=== PATIENT | male | born 1950 | race Caucasian/White ===

== ENCOUNTER 2017-11-27 10:15 | Inpatient (IN) | payer MEDICARE, BC ==
--- NOTE | 2017-11-26 11:49 | HP ---
HISTORY OF PRESENT ILLNESS: A 67-year-old male with COPD on home oxygen and CPAP at night, followed by Dr. Shetty, Pulmonary Medicine at [facility]. The patient had a screening colonoscopy perform ed by Dr. Rodrigues in [place] on 11/08/2017 revealing a 4 cm cancer felt to be in the proximal transver se colon. Biopsy revealing moderately differentiated adenocarcinoma invasive. He had right colon tu bular adenomas and hyperplastic polyps, otherwise. The patient had a CEA level of 10.[address] sca n of abdomen and pelvis performed with contrast in [place] revealed hypodensities in the liver, too small to characterize, felt to probably be cyst. He had thickening of wall in the right colon repre senting the known colon mass and diverticulosis, otherwise no other significant findings. CEA level on 11/08/2017 was 10.88. The patient presents now for discussion regarding treatment of his right co asif cancer. The patient is asymptomatic from a cardiac standpoint. He did see Dr. Ermias Bernal five years ago and h johann a nuclear cardiac stress test that was normal. She dismissed him from her care. ALLERGIES: None. SOCIAL HISTORY: Tobacco cessation in 2009. Although smoked a cigarette or two until two years ago estee mcpherson he completely stopped. Alcohol rarely. Note, the patient lives in [place]. He is . 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 MEDICATIONS: Multivitamins daily, bilberry plus lutein, calcium 600 mg a day, zinc 50 mg a day, tom min D3, vitamin C, Daliresp 500 mcg tablet daily, Synthroid daily, Advair two times a day, albuterol inhaler 4-6 times a day, albuterol sulfate 6 times a day, fluticasone proprionate nasal spray as need ed, Combivent inhaler as needed, ProAir hand held nebulizer as needed, Klor-Con 20 mEq a day, furosem viet 80 mg daily, calcium, vitamin D daily. PAST SURGICAL HISTORY: Thyroglossal duct cyst removed, right total knee replacement, prostatectomy f or prostate cancer. PSA has been normal. PAST MEDICAL HISTORY: COPD, hypothyroidism secondary to Graves disease. For his COPD the patient us es home oxygen, nighttime CPAP, takes steroids and antibiotics as indicated, but currently is not on them. FAMILY HISTORY: Noncontributory. REVIEW OF SYSTEMS: Otherwise, noncontributory. PHYSICAL EXAMINATION: VITAL SIGNS: 220 pounds, 5 feet 6 inches, 140/83, 104, 97.5 degrees. LUNGS: Clear, but occasional slight expiratory wheeze, more on the right. CARDIAC: Regular rate and rhythm without murmur or gallop. ABDOMEN: Obese, soft, nontender. EXTREMITIES: No ankle edema and no changes of chronic venous stasis. No lymphadenopathy in neck, ax illa or groin. NEUROLOGIC: Cranial nerves intact, neurologically intact. No focal deficit. ASSESSMENT AND PLAN: 1. 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 Possibilities of po stoperative ventilation discussed. Encouraged him to take his nebulizers, breathing treatments, and medications the night before and morning of his surgery. He will have a DuoNeb preoperatively. We w ill plan this under general anesthesia and tap block. Possibilities of being on the ventilator posto peratively discussed, but goal would be to have him extubated postoperatively and observe him in the hospital as necessary, 2-4 days postop. Risk of infection, bleeding, reoperation, anastomotic leakag e discussed. The patient will try to see Dr. Shetty, his Pulmonary Medicine doctor prior to the surge ry. He is followed by JANIS Sanchez in [place] and under Dr. Samano. He was referred by Dr. Rodrigues. 2. Chronic obstructive pulmonary disease. 3. History of tobacco abuse cessation two years ago, markedly cut down to one or two cigarettes a da y since [id number]. 4. History of prostate cancer. No evidence of disease. PSA is normal.
[2017-11-27 10:52] VITALS: BMI 35.0
--- NOTE | 2017-11-27 12:35 | RAD ---
RADIOGRAPH CHEST 2 VIEWS: HISTORY: 67-year-old male for pre-operative clearance. FINDINGS: The thoracic aorta is tortuous and ectatic. There is no evidence of air space density, pneumothorax, or pulmonary edema. There is no cardiomegaly or pleural effusion. IMPRESSION: 1) No acute cardiopulmonary findings. 2) Ectasia of thoracic aorta. nikky POS: [place]
[2017-11-27 12:47] LABS: Hemoglobin A1c 5.5 % (4.0-6.0)
[2017-11-27 12:58] LABS: ALT (SGPT) 27 U/L (8-55); AST (SGOT) 25 U/L (5-34); Albumin 4.3 g/dL (3.4-4.8); Alkaline Phosphatase 80 U/L (40-150); Anion Gap 8 mmol/L (10-20); BUN (Urea Nitrogen) 8 mg/dL (8.4-25.7); Bilirubin, Total 0.6 mg/dL (0.2-1.2); Calc. Creatinine Clearance 117 mL/min (70-130); Calcium 9.4 mg/dL (7.8-10.44); Carbon Dioxide 34 mmol/L (23-31); Chloride 102 mmol/L (98-107); Estimated GFR-MDRD Greater than 90; Globulin 2.7 g/dL (2.4-3.5); Glucose 92 mg/dL (80-115); Potassium 4.4 mmol/L (3.5-5.1); Sodium 140 mmol/L (136-145)
[2017-11-27 13:11] LABS: #Basophils 0.1 thou/uL (0.0-0.2); #Eosinphils 0.3 thou/uL (0.0-0.7); #Lymphocytes 1.7 thou/uL (1.20-3.40); #Monocytes 0.7 thou/uL (0.11-0.59); #Neutrophils 7.6 thou/uL (1.40-6.50); %Basophils 0.7 % (0.0-1.0); %Lymphocytes 16.2 % (21.0-51.0); %Neutrophils 73.2 % (42.0-75.0); Mean Corpuscular HGB CONC 32.2 g/dL (32.0-36.0); Mean Corpuscular Hemoglobin 29.7 pg (27.0-31.0); Mean Corpuscular Volume 92.1 fL (78.0-98.0); Mean Platelet Volume 6.5 fL (7.4-10.4); Platelet Count 343 thou/uL (130-400); Red Blood Cell (RBC) Count 5.06 mill/uL (4.70-6.10); White Blood Cell (WBC) Count 10.4 thou/uL (4.8-10.8)
[2017-11-30] MEDS ORDERED: Ketorolac Tromethamine 30 MG/ML VIAL ONE (06:44)
[2017-11-30] MEDS ORDERED: Dexamethasone 4 mg/ml Vial ONE (06:45)
[2017-11-30] MEDS ORDERED: Meropenem 2 GM in Admixture Fee 1 EACH IVPB SCH (06:45)
[2017-11-30] MEDS ORDERED: Midazolam HCl 2 mg/2 ml Vial ONE (06:45)
[2017-11-30] MEDS ORDERED: Fentanyl 100 MCG/2 ML VIAL ONE (06:45)
[2017-11-30] MEDS ORDERED: Hydrocortisone Sod Succ/PF 100 mg/2 ml Vial ONE (07:28)
[2017-11-30] MEDS ORDERED: Gabapentin 300 MG CAP ONE (08:00)
[2017-11-30] MEDS ORDERED: CeleCOXIB 100 MG CAP ONE (08:00)
[2017-11-30] MEDS ORDERED: Fentanyl 250 MCG/5 ML VIAL ONE (09:26)
[2017-11-30] MEDS ORDERED: Ketamine 50 MG/ML VIAL ONE (09:26)
[2017-11-30] MEDS ORDERED: cefOXitin 2 GM VIAL ONE (11:46)
[2017-11-30] MEDS ORDERED: Acetaminophen 1,000 MG in Premix Bag 1 BAG IVPB SCH (12:00)
[2017-11-30] MEDS ORDERED: Morphine 4 MG/ML VIAL SLOW IVP PRN (12:21)
[2017-11-30] MEDS ORDERED: hydrALAZINE 20 MG/ML VIAL SLOW IVP PRN (12:21)
[2017-11-30] MEDS ORDERED: Ondansetron HCl/PF 4 MG/2 ML Vial IVP PRN (12:21)
[2017-11-30] MEDS ORDERED: Fluticasone Propionate Nasal Spray 16 gm Bottle NASAL PRN (12:35)
[2017-11-30] MEDS ORDERED: ALBUTEROL SULFATE PO PRN (12:35)
[2017-11-30] MEDS ORDERED: guaiFENesin ER 600 MG TAB PO PRN (12:35)
[2017-11-30] MEDS ORDERED: IPRATROPIUM PO PRN (12:35)
[2017-11-30] MEDS ORDERED: Ipratropium Bromide 2.5 ml Neb NEB PRN (12:35)
--- NOTE | 2017-11-30 12:56 | OP ---
DATE OF PROCEDURE: 11/30/2017 PREOPERATIVE DIAGNOSIS: Right colon, hepatic flexure colon cancer, located proximal transverse colon , chronic obstructive pulmonary disease, obesity. POSTOPERATIVE DIAGNOSIS: Right colon, hepatic flexure colon cancer, located proximal transverse colo n, chronic obstructive pulmonary disease, obesity. PROCEDURE: Laparoscopic right colon resection with ileocolic primary staple anastomosis. SURGEON: Davy Jenkins M.D. ANESTHESIA: General. DOCUMENTATION NURSE: Tap block by Anesthesia. Ultrasound facilitated. ESTIMATED BLOOD LOSS: 57 mL. BLOOD TRANSFUSED: None. FINDINGS: Obesity, grossly normal-appearing liver and peritoneal cavity; palpable tumor mass in the proximal transverse colon, resected, tumor mass was mobile and no indication of extracolonic disease. PROCEDURE IN DETAIL: The patient was taken to the operating room where under general anesthesia and tap block, his abdomen was prepared with ChloraPrep, draped in routine fashion. Barclay catheter place d at the beginning of the procedure and removed at the end. Infraumbilical incision made and pneumop eritoneum to 15 mmHg obtained with the Veress needle, replacing it with a 5-port laparoscope inserted . Left upper quadrant incision made and a 5-port placed. Right lower quadrant incision made and a 5 -port placed. Right upper quadrant incision made and a 5-port placed. Dissection carried out freein g the cecum, terminal ileum from the pelvis. The tattooed area in the proximal transverse colon note d indicating the tumor mass. This also covered the adjacent mesentery. The gastrocolic ligament cass en down from the hepatic flexure area and transverse colon to the left of the falciform ligament. Li gaSure was used. The colon mobilized. The falciform ligament was taken down to some degree to facil itate reflection of the omentum cephalad to facilitate this dissection. There were some omental adhe sions to anterior abdominal wall near the falciform ligament in the midline, taken down with LigaSure to enable this. At this point, the terminal ileum was identified and mesentery scored with the cold scissors and adjacent mesentery at the root of the right colon scored up just distal to the tattooed area of the proximal transverse colon. This was to the patient's right of the middle colic vessels. Duodenum identified as the dissection was carried out. The ileocolic vascular pedicle identified, dissected free, LigaSure facilitated this, and this was divided with white load MADY stapler, exchangi ng the 5 mm port left lower quadrant for the 12 port to enable this. The mesentery then freed up to the terminal ileum using the LigaSure. The mesoappendix had been taken down with the LigaSure. Appe ndix identified and resected with the specimen. The right colon was then mobilized along the lateral edge of the hepatic flexure using the LigaSure mobilizing the right colon and transverse colon. Onc e this was accomplished and the colon completely be mobilized, and good hemostasis noted and appropri ate incision was made in the upper midline and the wound protector placed around the fascia and the c olon delivered into the wound. The staple anastomosis created with a MADY blue load 70 stapler. Once this was completed, the colon and ileum resected with 2 fires of the blue load stapler, closing the common enterotomy-colotomy site. Specimen resected and submitted to pathology. After palpating the tumor in the proximal transverse colon, there was no distortion of the serosa. No evidence of extrac olonic disease and the mesentery was very fatty and no obvious enlarged lymph nodes are noted. Good hemostasis noted. The anastomosis palpated. Sponge, instrument, and needle counts were correct, jose ves were changed, and midline fascia closed with continuous suture of #1 PDS. Skin and subcutaneous tissues irrigated. Wounds irrigated. The 12-mm port site had been closed, the fascia with 0 Vicryl suture. All skin incisions approximated with the subdermal 4-0 Monocryl and continuous suture of sub dermal 4-0 Monocryl, and DermaGlue applied. Patient tolerated the procedure well.
[2017-11-30] MEDS ORDERED: Ipratropium Bromide 2.5 ml Neb NEB SCH (13:00)
[2017-11-30] MEDS ORDERED: Bupivacaine HCl 0.5%/Epinephrine 1:200,000/PF 30 ml Vial ONE (13:45)
[2017-11-30] MEDS ORDERED: PROPOFOL 200 MG/20 ML VIAL ONE (14:23)
[2017-11-30] MEDS ORDERED: Glycopyrrolate 0.2 MG/ML 5 ML SYRINGE ONE (14:23)
[2017-11-30] MEDS ORDERED: Lidocaine 1% PF 5 ML VIAL ONE (14:23)
[2017-11-30] MEDS ORDERED: Ondansetron HCl/PF 4 MG/2 ML Vial ONE (14:23)
[2017-11-30] MEDS: Lactated Ringer's 1,000 ML IV SCH ×2 (14:36→23:40)
[2017-11-30] MEDS: Acetaminophen 1,000 MG in Premix Bag 1 BAG IVPB SCH ×2 (14:36→20:17)
--- NOTE | 2017-11-30 17:08 | CON ---
DATE OF CONSULTATION: 11/30/2017 HISTORY OF PRESENT ILLNESS: Mr. Estrella is a very pleasant 67-year-old male with COPD and sleep apnea. He was found to have transverse colon cancer. It was recommended that this be resected. He has undergone resection and I was consulted for assistance postoperatively. PAST MEDICAL HISTORY: 1. Remarkable for tobacco use until 2009. 2. History of COPD on chronic oxygen at home. It is unknown to me what his room air sat was at rest versus whether or not this was prescribed for ambulatory hypoxemia. SOCIAL HISTORY: He is . He has a large family that is all in the room with him, retired [employer]. MEDICATIONS: Prior to admission, he was on Spiriva once a day, nebulizer 4-6 times a day and Advair twice a day. Some potassium, Lasix, calcium and vitamin D. PAST SURGICAL HISTORY: Remarkable for knee replacement, prostatectomy and thyroglossal duct cyst. PAST MEDICAL HISTORY: Remarkable for Graves disease in the past. FAMILY HISTORY: Negative for lung disease in early age. REVIEW OF SYSTEMS: Ten point system review completed, otherwise negative. He denies pain surprisingly when I saw him after surgery. PHYSICAL EXAMINATION: GENERAL: Mr. Estrella is a very pleasant 67-year-old male with COPD and sleep apnea. VITAL SIGNS: He is afebrile, heart rate is 97, respiratory rate 18, oximetry is 93 on 3 liters, blood pressure 147/78. HEENT: Pupils are equal. NECK: Supple. LUNGS: Clear and distant. HEART: Regular rhythm, no S3, no murmurs heard. ABDOMEN: Soft and distended postoperatively, did not palpate his abdomen deeply because of his surgery. EXTREMITIES: Without clubbing, cyanosis, or edema. LABORATORY DATA: White count preop is 10.4, hemoglobin 15, platelets 343. Electrolytes were remarkable for bicarbonate of 34, which I suspect is secondary to chronic CO2 retention. IMPRESSION: Chronic obstructive pulmonary disease, clinically stable. He says he is felt the best he has felt in a while for the last 2 days because humidity dropped. We will continue with nebulizer treatments every 4 hours while awake. No recent added Spiriva, given that he is getting ipratropium every 4 hours and the Advair really will add much acutely. I will be happy to follow with the other physicians caring for him. Hopefully, a stable postop course. This is a 50-minute consult with greater than 50% of the time was spent on unit coordinating care. STEPHANIE
[2017-11-30] MEDS: Ketorolac Tromethamine 30 MG/ML VIAL IVP SCH (17:34)
[2017-11-30] MEDS: Mometasone/Formoterol 120 PUFF INHALER INH SCH (18:20)
[2017-11-30] MEDS ORDERED: traMADol HCl 50 MG TAB PO PRN ×2 (20:00)
[2017-11-30] MEDS: Enoxaparin Sodium 40 MG/0.4 ML SYRINGE SC SCH (20:17)
[2017-11-30] MEDS: Famotidine 20 MG TAB PO SCH (20:18)
[2017-11-30] MEDS: Famotidine/PF 20 mg/2ml Vial SLOW IVP SCH (23:22)
[2017-12-01] MEDS: Ketorolac Tromethamine 30 MG/ML VIAL IVP SCH ×5 (00:21→23:19)
[2017-12-01] MEDS: Acetaminophen 1,000 MG in Premix Bag 1 BAG IVPB SCH ×2 (03:54→08:15)
[2017-12-01 05:35] LABS: #Lymphocytes 0.9 thou/uL (1.20-3.40); #Monocytes 0.9 thou/uL (0.11-0.59); #Neutrophils 12.4 thou/uL (1.40-6.50); %Basophils 0.1 % (0.0-1.0); %Eosinophils 0.1 % (0.0-10.0); %Lymphocytes 6.6 % (21.0-51.0); %Monocytes 6.1 % (0.0-10.0); %Neutrophils 87.2 % (42.0-75.0); Mean Corpuscular Hemoglobin 30.2 pg (27.0-31.0); Mean Corpuscular Volume 91.3 fL (78.0-98.0); Mean Platelet Volume 6.4 fL (7.4-10.4); Platelet Count 296 thou/uL (130-400); RBC Distribution Width 12.7 % (11.5-14.5); Red Blood Cell (RBC) Count 4.32 mill/uL (4.70-6.10); White Blood Cell (WBC) Count 14.3 thou/uL (4.8-10.8)
[2017-12-01] MEDS: Levothyroxine 150 MCG TAB PO SCH (05:36)
[2017-12-01] MEDS: ROFLUMILAST PO SCH (05:41)
[2017-12-01 05:56] LABS: Anion Gap 14 mmol/L (10-20); BUN (Urea Nitrogen) 13 mg/dL (8.4-25.7); Calc. Creatinine Clearance 118 mL/min (70-130); Calcium 8.5 mg/dL (7.8-10.44); Carbon Dioxide 25 mmol/L (23-31); Chloride 102 mmol/L (98-107); Estimated GFR-MDRD Greater than 90; Glucose 117 mg/dL (80-115); Potassium 4.6 mmol/L (3.5-5.1); Sodium 136 mmol/L (136-145)
[2017-12-01] MEDS: Mometasone/Formoterol 120 PUFF INHALER INH SCH ×2 (07:32→18:57)
[2017-12-01] MEDS: Lactated Ringer's 1,000 ML IV SCH (08:15)
[2017-12-01] MEDS: Famotidine/PF 20 mg/2ml Vial SLOW IVP SCH (08:16)
[2017-12-01] MEDS: Famotidine 20 MG TAB PO SCH ×2 (08:16→20:23)
[2017-12-01] MEDS ORDERED: Acetaminophen 500 MG TAB PO SCH (09:00)
--- NOTE | 2017-12-01 15:45 | PRG ---
DATE OF SERVICE: 12/01/2017 SUBJECTIVE: Spike Estrella has no complaints. He does state that he would like to have his nebulizer treatments every 4 hours. So, we will switch him from q.4 while awake to q.4. His lungs are clear. He is not wheezing at all. He looks much better than he looked yesterday. IMPRESSION: Chronic obstructive pulmonary disease, stable, status post resection of a colon mass. PLAN: Change his nebulized treatments to every 4 hours. I had a long discussion with him about oxyg en therapy and his COPD and the importance of exercise. I will see him again in the morning.
--- NOTE | 2017-12-01 18:16 | PRG ---
Spike Estrella is doing well post-laparoscopic colon resection. He does not have any complaints res piratory mata. PHYSICAL EXAMINATION: VITAL SIGNS: Temperature 98.1 degrees, 100, 122/79. LUNGS: Clear to auscultation. CARDIAC: Regular rate and rhythm without murmur or gallop. ABDOMEN: Soft. Protuberant in his baseline. Bowel sounds present. He has had several bowel moveme nts. EXTREMITIES: Unremarkable. LABORATORY: White count 14, hemoglobin 13. Basic metabolic profile normal. Dr. Baird has seen him and the patient is very pleased with Dr. Baird's recommendations and input in conversation. ASSESSMENT AND PLAN: Doing well after right colectomy for hepatic flexure colon cancer. Pathology p ending. Hopefully, the patient will be ready for discharge home tomorrow, Sunday. We will a dvance his diet to regular diet in the morning.
[2017-12-01] MEDS: Enoxaparin Sodium 40 MG/0.4 ML SYRINGE SC SCH (20:22)
[2017-12-02] MEDS: Levothyroxine 150 MCG TAB PO SCH (05:30)
[2017-12-02] MEDS: ROFLUMILAST PO SCH (05:31)
[2017-12-02] MEDS: Ketorolac Tromethamine 30 MG/ML VIAL IVP SCH ×2 (05:33→13:00)
[2017-12-02] MEDS: Mometasone/Formoterol 120 PUFF INHALER INH SCH (07:30)
[2017-12-02] MEDS: Famotidine 20 MG TAB PO SCH (08:03)
[2017-12-02 13:35] VITALS: BP 130/80; TEMP 97.4
--- NOTE | 2017-12-02 15:45 | PRG ---
DATE OF PROGRESS: 12/02/2017 SUBJECTIVE: Mr. Estrella is doing well today. He is tolerating his diet. He has had more bowel move ments. He is not having nausea or vomiting. OBJECTIVE: VITAL SIGNS: 97.4, 108, 24, 130/80. HEENT: Unremarkable. LUNGS: Clear. No wheezing. CARDIAC: Regular rate and rhythm without murmur or gallop. ABDOMEN: Soft, obese, nontender. Surgical wounds look good. ASSESSMENT AND PLAN: Doing well. PLAN: Discharge home. Follow up in my office in approximately two weeks.
--- NOTE | 2017-12-02 16:18 | PRG ---
DATE OF SERVICE: 12/02/2017 SUBJECTIVE: Spike Estrella has no complaints. OBJECTIVE: VITAL SIGNS: He is afebrile, heart rate 107, respiratory rate 20, oximetry is 97, blood pressure 130 /80. LUNGS: He is mildly wheezy this morning, but he says he always is when he wakes up. HEART: Regular rhythm. ABDOMEN: Soft and nontender. LABORATORY DATA: There is no lab today. IMPRESSION: 1. Status post resection of colon mass. Pathology is still pending. 2. Underlying chronic obstructive pulmonary disease, on home O2 with chronic respiratory failure. H e is medically stable for discharge. There is no indication for steroids at this point. He will res ume his home regimen when he gets home.
--- NOTE | 2017-12-02 22:09 | DIS ---
DATE OF ADMISSION: 11/30/2017 DATE OF DISCHARGE: 12/02/2017 DISCHARGE DIAGNOSES: Colon cancer, hepatic flexure area, chronic obstructive pulmonary disease. DISCHARGE MEDICATIONS: Ultram p.r.n. pain, [id number] Tylenol, Motrin as needed. Resume home medications. Mucinex, Atrovent, Flonase inhalers, albuterol inhaler, Spiriva inhaler, Advair inhaler , Klor-Con 20 mEq a day, Synthroid daily, Lasix daily, Daliresp daily. HISTORY: A 67-year-old male screening colonoscopy revealed hepatic flexure colon cancer. He underwe nt a bowel prep, TAP block general anesthesia undergoing laparoscopic right colon resection. Postope ratively, convalescing and tolerated his diet. Discharged home. [facility]. Patient did very well despite his advanced COPD on home oxygen. He will follow up with me in about 2 weeks.
--- NOTE | 2017-12-02 22:56 | EKG ---
Test Reason : Blood Pressure : / mmHG Vent. Rate : 100 BPM Atrial Rate : 100 BPM P-R Int : 154 ms QRS Dur : 074 ms QT Int : 350 ms P-R-T Axes : 075 -40 067 degrees QTc Int : 451 ms Normal sinus rhythm Left axis deviation Anterior infarct , age undetermined Abnormal ECG No previous ECGs available Confirmed by Saroj MCCABE ([id number]) on 12/02/2017 10:56:13 PM Referred By: SHADY Confirmed By:Saroj MCCABE
[2017-12-04] MEDS ORDERED: Ibuprofen 600 MG TAB PO PRN (09:00)
== END 2017-12-02 16:02 | disposition home or self-care (01) | DRG 330 ==
LOC: SURG A 11-30 05:43
PROVIDERS: ADMIT Specialist; ATTEND Specialist
PROC: 0DTF4ZZ Resection of Right Large Intestine, Percutaneous Endoscopic Approach (ICD-10-PCS; principal; 2017-11-30)
DX: C18.3 Malignant neoplasm of hepatic flexure (principal); J96.10 Chronic respiratory failure, unspecified whether with hypoxia or hypercapnia; J44.9 Chronic obstructive pulmonary disease, unspecified; Z99.81 Dependence on supplemental oxygen; E03.9 Hypothyroidism, unspecified; Z96.651 Presence of right artificial knee joint; Z90.79 Acquired absence of other genital organ(s); Z85.46 Personal history of malignant neoplasm of prostate; Z87.891 Personal history of nicotine dependence
CPT/HCPCS: 36415; 36416; 71046; 80048; 80053; 83036; 85025; 88309; 88313; 88342; 93005; 93010; 94640; J0131; J0670; J0694; J1100; J1650; J1720; J1885; J2001; J2185; J2250; J2405; J2704; J3010; J7620

== ENCOUNTER 2018-01-15 08:35 | Outpatient (CLI) | payer MEDICARE, BC ==
[2018-01-15] MEDS ORDERED: Iopamidol 370 76% 100 ML VIAL ONE (09:04)
--- NOTE | 2018-01-15 10:55 | CT ---
POST CONTRAST NECK CT: HISTORY: Localized swelling. Mass. Neck lump. Abnormal PET scan. Colon cancer. The patient started chemot herapy. TECHNIQUE: A post contrast soft tissue neck CT is performed in the axial plane. Sagittal and coronal reformatte d images are submitted for interpretation. FINDINGS: The visualized brain parenchyma is unremarkable. The aerodigestive tract is patent. No mucosal abno rmality. The midline fatty raphe of the tongue is preserved. Adequate aeration of the visualized sinuses and mastoid air cells. There is no prevertebral soft tissue swelling. Mild mass effect upon the posterior left and right hy popharynx due to medial deviation of the carotid arteries. Symmetric attenuation of the sternocleidomastoid muscles. Symmetric attenuation parotid glands. Hyperdense lesion in the left parotid gland, measuring 0.8 x 0.9 cm, corresponds to an area of FDG av idity on recent PET imaging. There is hypermetabolic activity along the tail of the right parotid lo be, with an associated 1 x 0.8 cm, slightly enhancing mass. The lesion in the left parotid gland goodwin s enhance somewhat more than the right parotid gland. Bilateral intraparotid lesions are favored. No evidence of lymphadenopathy by size criteria. The thyroid gland is markedly diminutive and compatible with the patient's history of Graves' disease . There is atherosclerosis of both proximal internal carotid arteries without high grade stenosis. Mary luation is limited by technique. Grossly, the cervical vertebral arteries are unremarkable. There are varying degrees of central canal stenosis and neural foraminal narrowing, on the basis of d egenerative change. Vertebral body height is maintained. There is no fracture. The upper mediastinum and lung apices are unremarkable. IMPRESSION: Two discrete and intrinsic lesions associated with the left and right parotid gland. The lesions hav e a slightly different attenuation. The left parotid lesion is slightly more hyperdense than the con tralateral side. Both lesions are approximately 1 cm and correspond to the areas of FDG avidity note d on recent examination. Given the overall rounded appearance, intrinsic lesions to the parotid glan d are favored. Warthin tumor is the most favored etiology. Warthin tumors can be FDG avid. POS: [facility]
== END 2018-01-15 08:36 | disposition home or self-care (01) ==
LOC: CT 08:35
PROVIDERS: ATTEND Otolaryngology Plastic Surgery within the Head & Neck
DX: D49.0 Neoplasm of unspecified behavior of digestive system (principal); R22.1 Localized swelling, mass and lump, neck; K11.8 Other diseases of salivary glands
CPT/HCPCS: 70491

== ENCOUNTER 2018-12-06 09:24 | Outpatient (CLI) | payer MEDICARE, BC ==
--- NOTE | 2018-12-06 15:01 | CT ---
EXAM: CT chest, abdomen, and pelvis with IV contrast: HISTORY: Colon cancer and prostate cancer with history of prior colon resection and chemotherapy as well as pr ostatectomy. COMPARISON: PET/CT examination on 01/03/[address] abdomen and pelvis on 11/09/2017 FINDINGS: CT THORAX: Lungs: Minimal chronic lung changes are seen in the upper lung zones with minimal peripheral scarring present. Stable linear scarring is again seen at the right lung base with stable calcified granuloma at the left lung base. No noncalcified pulmonary nodule or mass is seen in the lungs bilate rally. Pleura: No pleural effusion. Lymph nodes: No enlarged lymph nodes are seen by CT size criteria. Calcified mediastinal and left hil ar lymph nodes are again noted related to prior granulomatous disease. Mediastinum: No acute process of the mediastinal structures. Chest wall: No abnormalities are seen. No lytic or sclerotic osseous lesions are seen. Degenerative c hanges are noted in the thoracic spine CT ABDOMEN AND PELVIS: Liver: As noted on the prior PET/CT examination and on CT at 11/09/2017, there are hypodense cystic le sions seen scattered in each lobe of the liver largest in the right hepatic lobe measuring 2.3 cm, slightly larger than the prior study, but does demonstrate fluid attenuation. No abnormal FDG uptake is seen within the region of the large cystic hepatic lesions on PET/CT exam, and these hypodensities are likely related to hepatic cysts. Gallbladder: Within normal limits. \ Pancreas: Within normal limits. Spleen: Within normal limits. Adrenal glands: Within normal limits. Kidneys: Within normal limits. Urinary Bladder: Decompressed. Reproductive organs: Within normal limits for patient's age. Bowel: There is colonic diverticulosis involving the sigmoid and descending colon. Postsurgical benedict es related to right hemicolectomy are again seen. Adenopathy:No lymphadenopathy within the abdomen or pelvis. Peritoneum/retroperitoneum: There are fat density areas with thin circumferential margins seen within the abdomen which have improved when compared to the prior exam and are likely related to improving areas of fat necrosis. Abdominal wall: Small fat-containing umbilical hernia as well as tiny fat-containing supraumbilical v entral abdominal wall hernia also seen on prior exam. Osseous structures: Degenerative changes are seen in the spine. No suspicious lytic or sclerotic osse ous lesions are identified. IMPRESSION: 1. No CT evidence of metastatic disease. 2. Cystic lesions within each lobe of the liver also seen on prior CT examination as well as on prior PET/CT exam. No abnormal FDG uptake was seen in these larger lesions, and findings are likely related to hepatic cysts. 3. Postsurgical changes related to right hemicolectomy. Low-density areas with thin rim of increased density are again seen in the right abdomen, but these areas have decreased in size and improved when compared to the prior PET/CT exam and are likely related to improving areas of fat necrosis. 4. Colonic diverticulosis. 5. Minimal chronic lung changes. 6. Fat-containing ventral and umbilical abdominal wall hernias.
[2018-12-06] MEDS ORDERED: ISOVUE-370 76%-LOCM 1 ML ONE (15:44)
== END 2018-12-06 09:25 | disposition home or self-care (01) ==
LOC: BICCT 09:24
PROVIDERS: ATTEND Internal Medicine Hematology & Oncology
DX: C18.9 Malignant neoplasm of colon, unspecified (principal); K76.89 Other specified diseases of liver; K57.30 Diverticulosis of large intestine without perforation or abscess without bleeding; K43.9 Ventral hernia without obstruction or gangrene; K42.9 Umbilical hernia without obstruction or gangrene; Z98.890 Other specified postprocedural states
CPT/HCPCS: 71260; 74177; 82565; Q9966

== ENCOUNTER 2019-12-01 08:56 | Outpatient (CLI) | payer MEDICARE, BC ==
--- NOTE | 2019-12-01 10:10 | CT ---
EXAM: CT chest, abdomen, and pelvis with IV contrast: HISTORY: Colon cancer. History of chemotherapy. Prior colon resection. History of prostate cancer with prior p rostatectomy. COMPARISON: 12/06/2018 FINDINGS: CT THORAX: Lungs: Stable scattered areas of mild scarring are seen within the lungs bilaterally. Calcified granu rula is again present in the left lower lobe. Few very tiny pleural-based nodular densities are seen in the right upper lobe. No new discrete pulmonary nodule or mass is seen, and there is no conso lidation. Pleura: No pleural effusion. Lymph nodes: No enlarged lymph nodes are seen. Mediastinum: Vascular calcifications are seen in the thoracic aorta. Calcified subcarinal lymph node is seen. Chest wall: No abnormalities CT ABDOMEN AND PELVIS: Liver: Stable hypodense cystic appearing lesions are again scattered in each lobe of the liver which are unchanged in number or size. No new hepatic lesion is identified. Gallbladder: Within normal limits. Pancreas: Within normal limits. Spleen: Within normal limits. Adrenal glands: Within normal limits. Kidneys: Within normal limits. Urinary Bladder: The urinary bladder is unremarkable. Reproductive organs: Evidence of prostatectomy. Bowel: Colonic diverticulosis. Evidence of right hemicolectomy. Adenopathy:No lymphadenopathy within the abdomen or pelvis. Peritoneum: No free fluid or fluid collection is seen in the abdomen or pelvis. There is an area of f at necrosis again seen in the right lower quadrant. Abdominal wall: Small fat-containing umbilical hernia is present as well as a small fat-containing duggan praumbilical hernia. Osseous structures: No suspicious lytic or sclerotic osseous lesions are identified. IMPRESSION: 1. No CT evidence of metastatic disease. 2. Stable cystic hepatic lesions. 3. Postsurgical changes related to right hemicolectomy with areas again most likely reflective of fat necrosis in the right lower quadrant. 4. Evidence of prostatectomy. 5. Colonic diverticulosis. 6. Mild chronic lung changes. 7. CT chest, abdomen, and pelvis is stable compared to the prior exam.
[2019-12-01] MEDS ORDERED: Iopamidol 370 76% 100 ML VIAL ONE (11:51)
== END 2019-12-01 08:57 | disposition home or self-care (01) ==
LOC: BICCT 08:56
PROVIDERS: ATTEND Internal Medicine Hematology & Oncology
DX: C18.4 Malignant neoplasm of transverse colon (principal); K76.89 Other specified diseases of liver; K57.30 Diverticulosis of large intestine without perforation or abscess without bleeding; J98.4 Other disorders of lung; Z98.890 Other specified postprocedural states; Z90.79 Acquired absence of other genital organ(s)
CPT/HCPCS: 71260; 74177; 82565; Q9967

== ENCOUNTER 2020-11-02 08:26 | Outpatient (CLI) | payer MEDICARE, BC ==
[2020-11-02] MEDS ORDERED: Iopamidol-370 76% 500 ML 1 ML ONE (09:24)
== END 2020-11-02 08:27 | disposition home or self-care (01) ==
LOC: BICCT 08:26
PROVIDERS: ATTEND Internal Medicine Hematology & Oncology
DX: C18.4 Malignant neoplasm of transverse colon (principal); K63.89 Other specified diseases of intestine
CPT/HCPCS: 71260; 74177; 82565; Q9967

== ENCOUNTER 2021-01-13 06:03 | Day surgery (SDC) | payer MEDICARE, BC ==
[2021-01-12 10:23] VITALS: BMI 33.9
[2021-01-13] MEDS ORDERED: PROPOFOL 200 MG/20 ML VIAL ONE (08:20)
== END 2021-01-13 09:42 | disposition home or self-care (01) ==
LOC: SDC 06:03
PROVIDERS: ATTEND Internal Medicine
PROC: 0DBP8ZX Excision of Rectum, Via Natural or Artificial Opening Endoscopic, Diagnostic (ICD-10-PCS; principal; 2021-01-13)
PROC: 0DBL8ZX Excision of Transverse Colon, Via Natural or Artificial Opening Endoscopic, Diagnostic (ICD-10-PCS; 2021-01-13)
DX: Z12.11 Encounter for screening for malignant neoplasm of colon (principal); D12.3 Benign neoplasm of transverse colon; K62.1 Rectal polyp; K57.30 Diverticulosis of large intestine without perforation or abscess without bleeding; K64.8 Other hemorrhoids; J44.9 Chronic obstructive pulmonary disease, unspecified; Z85.038 Personal history of other malignant neoplasm of large intestine; Z79.899 Other long term (current) drug therapy; Z88.5 Allergy status to narcotic agent; Z88.8 Allergy status to other drugs, medicaments and biological substances; Z90.49 Acquired absence of other specified parts of digestive tract
CPT/HCPCS: 88305; J2704; J7620

== ENCOUNTER 2021-10-27 08:54 | Outpatient (CLI) | payer MEDICARE, BC | END 2021-10-27 08:55 | disposition home or self-care (01) | LOC: BICCT 08:54 | PROVIDERS: ATTEND Internal Medicine Hematology & Oncology | DX: C18.4 Malignant neoplasm of transverse colon (principal); N43.3 Hydrocele, unspecified; K57.30 Diverticulosis of large intestine without perforation or abscess without bleeding; K76.9 Liver disease, unspecified | CPT/HCPCS: 71260; 74177; 82565 ==

== ENCOUNTER 2022-03-08 06:50 | Inpatient (IN) | payer MEDICARE, BC ==
[2022-03-08] MEDS ORDERED: Ketamine 50 MG/ML (10ML VIAL) ONE (08:55)
[2022-03-08] MEDS ORDERED: PROPOFOL 200 MG/20 ML VIAL ONE (09:15)
[2022-03-08] MEDS ORDERED: Acetaminophen 650 MG Suppository PR PRN (11:12)
[2022-03-08] MEDS ORDERED: Ondansetron PF 4 MG/2 ML Vial IVP PRN (11:12)
[2022-03-08] MEDS ORDERED: Enalaprilat Dihydrate 1.25 MG/ML VIAL SLOW IVP PRN (11:24)
[2022-03-08] MEDS ORDERED: Electrolyte Replacement Protocol FS PRN (11:30)
[2022-03-08] MEDS ORDERED: Electrolyte Replacement Protocol 1 EACH FS SCH (11:30)
[2022-03-08 11:36] LABS: SARS-CoV-2 NAA Rapid Test Not Detected (NotDetected)
[2022-03-08] MEDS ORDERED: FENTANYL 50 MCG/ML 1 ML VIAL ONE ×2 (11:36→11:56)
[2022-03-08 12:05] LABS: Hemoglobin 16.7 g/dL (14.0-18.0); Mean Corpuscular HGB CONC 31.5 g/dL (32.0-36.0); Mean Corpuscular Hemoglobin 30.9 pg (27.0-31.0); Mean Corpuscular Volume 98.2 fl (78.0-98.0); Mean Platelet Volume 6.6 fL (7.4-10.4); Platelet Count 322 10x3/uL (130-400); RBC Distribution Width 12.1 % (11.5-14.5); Red Blood Cell (RBC) Count 5.39 mill/uL (4.70-6.10)
[2022-03-08 12:12] LABS: Prothrombin Time 13.7 sec (12.0-14.7)
[2022-03-08 12:13] LABS: PTT 28.6 sec (22.9-36.1)
[2022-03-08 12:21] LABS: Lactic Acid 1.1 mmol/L (0.5-2.2)
[2022-03-08 12:25] LABS: Magnesium 2.8 mg/dL (1.6-2.6); Phosphorus 3.1 mg/dL (2.3-4.7)
[2022-03-08 12:26] LABS: ALT (SGPT) 19 U/L (8-55); AST (SGOT) 18 U/L (5-34); Albumin 3.8 g/dL (3.4-4.8); Alkaline Phosphatase 60 U/L (40-110); BUN (Urea Nitrogen) 22 mg/dL (8.4-25.7); Bilirubin, Total 1.1 mg/dL (0.2-1.2); Calc. Creatinine Clearance 86 mL/min (70-130); Calcium 9.2 mg/dL (7.8-10.44); Estimated GFR 82; Globulin 2.8 g/dL (2.4-3.5); Glucose 133 mg/dL (83-110); Protein, Total 6.6 g/dL (5.8-8.1)
[2022-03-08 12:28] LABS: Troponin I Less than 0.010 ng/mL (< 0.028)
[2022-03-08 12:37] LABS: Anion Gap 17 mmol/L (10-20); Carbon Dioxide 33 mmol/L (23-31); Chloride 94 mmol/L (98-107); Potassium 3.7 mmol/L (3.5-5.1); Sodium 140 mmol/L (136-145)
[2022-03-08 12:39] LABS: Band 17 % (5-11); Hypochromia SLIGHT = 6-15 cells (100X) (0-5/hpf); Lymphocytes 3 % (21-51); MDiff Complete? YES; Monocytes 2 % (0-10); Neutrophil 78 % (42-75); Platelet Morphology Comment Appears Adequate; Polychromasia SLIGHT = 2-3 cells (100X) (0-2/hpf)
[2022-03-08] MEDS: D5 1/2 NS w/20 mEq KCL 1,000 ML IV SCH ×2 (13:17→20:24)
[2022-03-08] MEDS ORDERED: Fentanyl 100 MCG/2 ML VIAL SLOW IVP PRN (16:45)
[2022-03-08] MEDS: Budesonide 0.5 MG/2 ML NEB NEB SCH (19:07)
[2022-03-08] MEDS: Pantoprazole 40 MG VIAL IVP SCH (20:24)
[2022-03-09] MEDS ORDERED: FENTANYL 50 MCG/ML 1 ML VIAL SLOW IVP PRN (03:00)
[2022-03-09 06:01] LABS: #Eosinphils 0.5 thou/uL (0.0-0.7); #Lymphocytes 1.3 thou/uL (1.20-3.40); #Neutrophils 13.9 thou/uL (1.40-6.50); %Basophils 0.3 % (0.0-1.0); %Eosinophils 3.2 % (0.0-10.0); %Lymphocytes 7.9 % (21.0-51.0); %Monocytes 5.9 % (0.0-10.0); %Neutrophils 82.7 % (42.0-75.0); Mean Corpuscular HGB CONC 31.9 g/dL (32.0-36.0); Mean Corpuscular Hemoglobin 31.5 pg (27.0-31.0); Mean Corpuscular Volume 98.8 fl (78.0-98.0); Mean Platelet Volume 6.7 fL (7.4-10.4); Platelet Count 282 10x3/uL (130-400); RBC Distribution Width 12.3 % (11.5-14.5); Red Blood Cell (RBC) Count 4.76 mill/uL (4.70-6.10); White Blood Cell (WBC) Count 16.7 10x3/uL (4.8-10.8)
[2022-03-09 06:16] LABS: Lactic Acid 1.2 mmol/L (0.5-2.2)
[2022-03-09 06:31] LABS: ALT (SGPT) 15 U/L (8-55); AST (SGOT) 18 U/L (5-34); Albumin 3.4 g/dL (3.4-4.8); Alkaline Phosphatase 51 U/L (40-110); Anion Gap 14 mmol/L (10-20); BUN (Urea Nitrogen) 17 mg/dL (8.4-25.7); Bilirubin, Total 1.3 mg/dL (0.2-1.2); Calc. Creatinine Clearance 85 mL/min (70-130); Calcium 8.6 mg/dL (7.8-10.44); Carbon Dioxide 34 mmol/L (23-31); Chloride 95 mmol/L (98-107); Estimated GFR 81; Globulin 2.6 g/dL (2.4-3.5); Glucose 135 mg/dL (83-110); Magnesium 2.7 mg/dL (1.6-2.6); Phosphorus 1.9 mg/dL (2.3-4.7); Potassium 3.6 mmol/L (3.5-5.1); Sodium 139 mmol/L (136-145)
[2022-03-09] MEDS: Budesonide 0.5 MG/2 ML NEB NEB SCH ×2 (06:51→18:25)
[2022-03-09] MEDS ORDERED: Potassium Phosphate 15 MMOL in Sodium Chloride 0.9% 100 ML IVPB SCH (08:00)
[2022-03-09] MEDS: Pantoprazole 40 MG VIAL IVP SCH ×2 (08:48→20:05)
[2022-03-09 09:36] LABS: Bilirubin Negative (Negative); Blood, Urine Trace (Negative); Glucose, Urine (Dipstick) Normal (Negative); Ketone, Urine 10 mg/dL (Negative); Leukocyte Negative Leu/uL (Negative); Nitrite Negative (Negative); Protein, Urine (Dipstick) 50 mg/dL (Neg-Trace); Specific Gravity, Urine 1.028 (1.002-1.036); Squamous Epithelial 0-3 HPF (0-3); Urobilinogen Normal mg/dL (Less than 2)
[2022-03-09 09:51] LABS: Bacteria/HPF 1+ HPF (None Seen); Clarity Cloudy (Clear); WBC/HPF 0-3 HPF (0-3)
[2022-03-09 09:52] LABS: Urine Culture Reflex Yes Yes
[2022-03-09] MEDS ORDERED: Iopamidol-370 76% 500 ML 1 ML ONE (10:10)
[2022-03-09] MEDS ORDERED: Fentanyl 100 MCG/2 ML VIAL SLOW IVP PRN (13:45)
[2022-03-09] MEDS: D5 1/2 NS w/20 mEq KCL 1,000 ML IV SCH ×4 (14:49→20:05)
[2022-03-09] MEDS: FENTANYL 50 MCG/ML 1 ML VIAL SLOW IVP PRN ×3 (14:52→22:08)
[2022-03-10] MEDS: FENTANYL 50 MCG/ML 1 ML VIAL SLOW IVP PRN (04:17)
[2022-03-10 06:11] LABS: #Eosinphils 0.5 thou/uL (0.0-0.7); #Lymphocytes 0.9 thou/uL (1.20-3.40); #Monocytes 1.2 thou/uL (0.11-0.59); %Basophils 0.1 % (0.0-1.0); %Eosinophils 3.4 % (0.0-10.0); %Lymphocytes 5.8 % (21.0-51.0); %Monocytes 7.7 % (0.0-10.0); Hemoglobin 13.6 g/dL (14.0-18.0); Mean Corpuscular HGB CONC 31.7 g/dL (32.0-36.0); Mean Corpuscular Hemoglobin 31.5 pg (27.0-31.0); Mean Corpuscular Volume 99.4 fl (78.0-98.0); Mean Platelet Volume 7.4 fL (7.4-10.4); Platelet Count 283 10x3/uL (130-400); RBC Distribution Width 12.1 % (11.5-14.5); Red Blood Cell (RBC) Count 4.33 mill/uL (4.70-6.10); White Blood Cell (WBC) Count 15.7 10x3/uL (4.8-10.8)
[2022-03-10 06:38] LABS: ALT (SGPT) 14 U/L (8-55); AST (SGOT) 17 U/L (5-34); Albumin 3.3 g/dL (3.4-4.8); Alkaline Phosphatase 53 U/L (40-110); Anion Gap 10 mmol/L (10-20); BUN (Urea Nitrogen) 11 mg/dL (8.4-25.7); Bilirubin, Total 0.8 mg/dL (0.2-1.2); Calc. Creatinine Clearance 103 mL/min (70-130); Calcium 8.2 mg/dL (7.8-10.44); Carbon Dioxide 31 mmol/L (23-31); Chloride 100 mmol/L (98-107); Estimated GFR 93; Globulin 2.4 g/dL (2.4-3.5); Glucose 119 mg/dL (83-110); Phosphorus 1.9 mg/dL (2.3-4.7); Potassium 3.5 mmol/L (3.5-5.1); Protein, Total 5.7 g/dL (5.8-8.1); Sodium 137 mmol/L (136-145)
[2022-03-10] MEDS: Budesonide 0.5 MG/2 ML NEB NEB SCH ×2 (07:11→22:15)
[2022-03-10] MEDS ORDERED: Potassium Phosphate 15 MMOL in Sodium Chloride 0.9% 100 ML IVPB SCH (08:00)
[2022-03-10] MEDS: Pantoprazole 40 MG VIAL IVP SCH ×2 (09:00→20:07)
[2022-03-10] MEDS ORDERED: Succinylcholine Chloride 200 MG/10 ML VIAL ONE (11:08)
[2022-03-10] MEDS ORDERED: Dexamethasone 20 MG/5 ML VIAL ONE (11:08)
[2022-03-10] MEDS ORDERED: PROPOFOL 200 MG/20 ML VIAL ONE (11:08)
[2022-03-10] MEDS ORDERED: Ondansetron PF 4 MG/2 ML Vial ONE (11:08)
[2022-03-10] MEDS ORDERED: Potassium Chloride 20 MEQ in Premix Bag 1 BAG IVPB SCH ×2 (12:00→23:15)
[2022-03-10] MEDS: D5 1/2 NS w/20 mEq KCL 1,000 ML IV SCH (20:19)
[2022-03-11] MEDS: Budesonide 0.5 MG/2 ML NEB NEB SCH ×2 (05:27→19:11)
[2022-03-11] MEDS: D5 1/2 NS w/20 mEq KCL 1,000 ML IV SCH ×2 (06:11→09:34)
[2022-03-11 06:13] LABS: #Eosinphils 0.1 thou/uL (0.0-0.7); #Lymphocytes 0.8 thou/uL (1.20-3.40); #Monocytes 0.9 thou/uL (0.11-0.59); %Eosinophils 0.5 % (0.0-10.0); %Monocytes 5.9 % (0.0-10.0); %Neutrophils 88.6 % (42.0-75.0); Hemoglobin 13.1 g/dL (14.0-18.0); Mean Corpuscular HGB CONC 31.3 g/dL (32.0-36.0); Mean Corpuscular Volume 99.3 fl (78.0-98.0); Mean Platelet Volume 6.9 fL (7.4-10.4); Platelet Count 289 10x3/uL (130-400); RBC Distribution Width 12.1 % (11.5-14.5); White Blood Cell (WBC) Count 15.8 10x3/uL (4.8-10.8)
[2022-03-11 06:38] LABS: ALT (SGPT) 17 U/L (8-55); AST (SGOT) 27 U/L (5-34); Albumin 3.1 g/dL (3.4-4.8); Alkaline Phosphatase 56 U/L (40-110); Anion Gap 11 mmol/L (10-20); BUN (Urea Nitrogen) 15 mg/dL (8.4-25.7); Bilirubin, Total 0.5 mg/dL (0.2-1.2); Calc. Creatinine Clearance 103 mL/min (70-130); Calcium 8.4 mg/dL (7.8-10.44); Carbon Dioxide 28 mmol/L (23-31); Chloride 103 mmol/L (98-107); Estimated GFR 93; Globulin 2.7 g/dL (2.4-3.5); Glucose 157 mg/dL (83-110); Phosphorus 1.4 mg/dL (2.3-4.7); Potassium 4.1 mmol/L (3.5-5.1); Protein, Total 5.8 g/dL (5.8-8.1); Sodium 138 mmol/L (136-145)
[2022-03-11] MEDS ORDERED: Potassium Phosphate 22 MMOL in Sodium Chloride 0.9% 250 ML 250 ML IVPB SCH (07:15)
[2022-03-11] MEDS: Pantoprazole 40 MG VIAL IVP SCH ×2 (09:33→20:21)
[2022-03-12 06:36] LABS: Phosphorus 2.9 mg/dL (2.3-4.7)
[2022-03-12] MEDS: Budesonide 0.5 MG/2 ML NEB NEB SCH (07:09)
[2022-03-12] MEDS: Pantoprazole 40 MG VIAL IVP SCH ×2 (08:22→20:24)
[2022-03-12] MEDS ORDERED: Chloraseptic Spray 180 ml Bottle PO PRN (15:17)
[2022-03-13 06:21] LABS: #Eosinphils 0.7 thou/uL (0.0-0.7); #Lymphocytes 1.1 thou/uL (1.20-3.40); #Monocytes 1.1 thou/uL (0.11-0.59); #Neutrophils 12.6 thou/uL (1.40-6.50); %Basophils 0.2 % (0.0-1.0); %Eosinophils 4.4 % (0.0-10.0); %Lymphocytes 7.2 % (21.0-51.0); %Monocytes 7.1 % (0.0-10.0); %Neutrophils 81.1 % (42.0-75.0); Hemoglobin 13.5 g/dL (14.0-18.0); Mean Corpuscular Hemoglobin 30.9 pg (27.0-31.0); Mean Corpuscular Volume 99.8 fl (78.0-98.0); Mean Platelet Volume 6.8 fL (7.4-10.4); Platelet Count 336 10x3/uL (130-400); RBC Distribution Width 12.2 % (11.5-14.5); Red Blood Cell (RBC) Count 4.38 mill/uL (4.70-6.10); White Blood Cell (WBC) Count 15.5 10x3/uL (4.8-10.8)
[2022-03-13 06:50] LABS: ALT (SGPT) 25 U/L (8-55); AST (SGOT) 25 U/L (5-34); Albumin 3.2 g/dL (3.4-4.8); Alkaline Phosphatase 64 U/L (40-110); Anion Gap 12 mmol/L (10-20); BUN (Urea Nitrogen) 14 mg/dL (8.4-25.7); Bilirubin, Total 0.4 mg/dL (0.2-1.2); Calc. Creatinine Clearance 110 mL/min (70-130); Calcium 8.9 mg/dL (7.8-10.44); Carbon Dioxide 30 mmol/L (23-31); Chloride 100 mmol/L (98-107); Estimated GFR 95; Globulin 2.6 g/dL (2.4-3.5); Glucose 117 mg/dL (83-110); Potassium 3.6 mmol/L (3.5-5.1); Protein, Total 5.8 g/dL (5.8-8.1); Sodium 138 mmol/L (136-145)
[2022-03-13] MEDS: Levothyroxine 150 MCG TAB PO SCH (08:16)
[2022-03-13] MEDS: Pantoprazole 40 MG VIAL IVP SCH ×2 (08:16→20:05)
[2022-03-14] MEDS: Levothyroxine 150 MCG TAB PO SCH (09:24)
[2022-03-14] MEDS: Pantoprazole 40 MG VIAL IVP SCH ×2 (09:25→20:02)
[2022-03-15] MEDS: Levothyroxine 150 MCG TAB PO SCH (09:34)
[2022-03-15] MEDS: Pantoprazole 40 MG VIAL IVP SCH ×2 (09:35→20:50)
[2022-03-15] MEDS ORDERED: MD-Gastroview 120 ML BOT ONE (11:27)
[2022-03-15] MEDS: Lactated Ringer's 1,000 ML IV SCH (20:49)
[2022-03-16] MEDS: Lactated Ringer's 1,000 ML IV SCH ×2 (05:18→08:09)
[2022-03-16 05:59] LABS: #Eosinphils 0.7 thou/uL (0.0-0.7); #Monocytes 1.2 thou/uL (0.11-0.59); #Neutrophils 11.1 thou/uL (1.40-6.50); %Basophils 0.3 % (0.0-1.0); %Eosinophils 4.7 % (0.0-10.0); %Lymphocytes 13.1 % (21.0-51.0); %Neutrophils 73.9 % (42.0-75.0); Hemoglobin 14.2 g/dL (14.0-18.0); Mean Corpuscular HGB CONC 31.2 g/dL (32.0-36.0); Mean Corpuscular Hemoglobin 31.1 pg (27.0-31.0); Mean Corpuscular Volume 99.7 fl (78.0-98.0); Mean Platelet Volume 6.6 fL (7.4-10.4); Platelet Count 388 10x3/uL (130-400); RBC Distribution Width 12.2 % (11.5-14.5); Red Blood Cell (RBC) Count 4.58 mill/uL (4.70-6.10)
[2022-03-16 06:55] LABS: ALT (SGPT) 28 U/L (8-55); AST (SGOT) 32 U/L (5-34); Albumin 3.2 g/dL (3.4-4.8); Alkaline Phosphatase 72 U/L (40-110); Anion Gap 13 mmol/L (10-20); BUN (Urea Nitrogen) 13 mg/dL (8.4-25.7); Bilirubin, Total 0.4 mg/dL (0.2-1.2); Calc. Creatinine Clearance 99 mL/min (70-130); Calcium 8.8 mg/dL (7.8-10.44); Carbon Dioxide 30 mmol/L (23-31); Chloride 102 mmol/L (98-107); Estimated GFR 92; Globulin 3.2 g/dL (2.4-3.5); Glucose 90 mg/dL (83-110); Magnesium 2.1 mg/dL (1.6-2.6); Protein, Total 6.4 g/dL (5.8-8.1); Sodium 140 mmol/L (136-145)
[2022-03-16 07:37] LABS: Phosphorus 3.3 mg/dL (2.3-4.7)
[2022-03-16] MEDS: Levothyroxine 150 MCG TAB PO SCH (08:09)
[2022-03-16] MEDS: Pantoprazole 40 MG VIAL IVP SCH ×2 (08:09→20:45)
[2022-03-16] MEDS ORDERED: Bupivacaine 0.25% HCL 30 ML VIAL ONE (11:00)
[2022-03-16] MEDS ORDERED: Midazolam HCl 2 mg/2 ml Vial ONE (11:00)
[2022-03-16] MEDS ORDERED: FENTANYL 50 MCG/ML 1 ML VIAL ONE (11:00)
[2022-03-16] MEDS ORDERED: Phenylephrine 10 MG/ML VIAL ONE (11:41)
[2022-03-16] MEDS ORDERED: fentaNYL PF 100 MCG/2 ML SYRINGE ONE ×4 (11:41→15:38)
[2022-03-16] MEDS ORDERED: CEFAZOLIN 2 GM VIAL ONE (11:42)
[2022-03-16] MEDS ORDERED: Sodium Chloride 0.9% 100 ML ONE (11:42)
[2022-03-16] MEDS ORDERED: PHENYLEPHRINE-NS 100 MCG/ML 10 ML SYRINGE ONE (12:28)
[2022-03-16] MEDS ORDERED: PROPOFOL 200 MG/20 ML VIAL ONE (12:28)
[2022-03-16] MEDS ORDERED: Ondansetron PF 4 MG/2 ML Vial ONE (12:28)
[2022-03-16] MEDS ORDERED: Rocuronium Bromide 10 MG/ML (10ML VIAL) ONE (12:28)
[2022-03-16] MEDS ORDERED: SUGAMMADEX SODIUM 200 MG/2 ML VIAL ONE (14:03)
[2022-03-16] MEDS ORDERED: Ondansetron HCl/PF 4 MG/2 ML Vial IVP PRN (15:13)
[2022-03-16] MEDS: Dextrose 5 %-0.45 % NaCl 1,000 ML IV SCH (16:58)
[2022-03-16] MEDS ORDERED: Ketorolac Tromethamine 30 MG/ML VIAL IVP SCH (17:45)
[2022-03-16] MEDS ORDERED: Morphine 4 MG/ML VIAL SLOW IVP SCH (17:45)
[2022-03-16] MEDS ORDERED: CEFAZOLIN 2 GM in Sodium Chloride 0.9% 100 ML IVPB SCH (18:45)
[2022-03-16] MEDS: Enoxaparin Sodium 40 MG/0.4 ML SYRINGE SC SCH (20:45)
[2022-03-16] MEDS: Morphine 4 MG/ML VIAL SLOW IVP PRN (20:46)
[2022-03-17] MEDS: Dextrose 5 %-0.45 % NaCl 1,000 ML IV SCH ×4 (00:11→21:06)
[2022-03-17] MEDS: Ketorolac Tromethamine 30 MG/ML VIAL IVP PRN ×4 (04:10→21:07)
[2022-03-17] MEDS: Morphine 4 MG/ML VIAL SLOW IVP PRN ×6 (04:10→21:03)
[2022-03-17 05:26] LABS: #Eosinphils 0.2 thou/uL (0.0-0.7); #Lymphocytes 1.4 thou/uL (1.20-3.40); %Basophils 0.1 % (0.0-1.0); %Eosinophils 1.4 % (0.0-10.0); %Lymphocytes 8.8 % (21.0-51.0); %Monocytes 6.3 % (0.0-10.0); %Neutrophils 83.4 % (42.0-75.0); Hemoglobin 13.4 g/dL (14.0-18.0); Mean Corpuscular HGB CONC 31.5 g/dL (32.0-36.0); Mean Corpuscular Hemoglobin 31.6 pg (27.0-31.0); Mean Platelet Volume 6.5 fL (7.4-10.4); Platelet Count 343 10x3/uL (130-400); RBC Distribution Width 12.1 % (11.5-14.5); Red Blood Cell (RBC) Count 4.23 mill/uL (4.70-6.10); White Blood Cell (WBC) Count 15.6 10x3/uL (4.8-10.8)
[2022-03-17 05:55] LABS: ALT (SGPT) 23 U/L (8-55); AST (SGOT) 21 U/L (5-34); Albumin 2.6 g/dL (3.4-4.8); Alkaline Phosphatase 48 U/L (40-110); Anion Gap 8 mmol/L (10-20); BUN (Urea Nitrogen) 11 mg/dL (8.4-25.7); Bilirubin, Total 0.5 mg/dL (0.2-1.2); Calc. Creatinine Clearance 98 mL/min (70-130); Calcium 7.6 mg/dL (7.8-10.44); Carbon Dioxide 33 mmol/L (23-31); Chloride 102 mmol/L (98-107); Estimated GFR 92; Globulin 2.3 g/dL (2.4-3.5); Glucose 151 mg/dL (83-110); Potassium 4.1 mmol/L (3.5-5.1); Protein, Total 4.9 g/dL (5.8-8.1); Sodium 139 mmol/L (136-145)
[2022-03-17] MEDS: Pantoprazole 40 MG VIAL IVP SCH ×2 (08:13→20:58)
[2022-03-17] MEDS ORDERED: Ipratropium Bromide 2.5 ml Neb NEB PRN (09:54)
[2022-03-17] MEDS ORDERED: Non-Formulary Item 1 EACH (Ipratropium/Albuterol Sulfate [Combivent Respimat] 120 PUFF In PO PRN (09:54)
[2022-03-17] MEDS ORDERED: Fluticasone Propionate Nasal Spray 16 gm Bottle NASAL PRN (09:54)
[2022-03-17] MEDS ORDERED: guaiFENesin ER 600 MG TAB PO PRN (09:54)
[2022-03-17] MEDS ORDERED: Sodium Chloride 0.9% 1,000 ML IV SCH (10:00)
[2022-03-17] MEDS: Levothyroxine 150 MCG TAB PO SCH (10:12)
[2022-03-17] MEDS: Enoxaparin Sodium 40 MG/0.4 ML SYRINGE SC SCH (20:58)
[2022-03-18] MEDS: Morphine 4 MG/ML VIAL SLOW IVP PRN ×5 (03:25→20:06)
[2022-03-18] MEDS: Dextrose 5 %-0.45 % NaCl 1,000 ML IV SCH ×2 (05:23→16:03)
[2022-03-18 06:40] LABS: #Eosinphils 0.4 thou/uL (0.0-0.7); #Lymphocytes 1.2 thou/uL (1.20-3.40); #Monocytes 0.8 thou/uL (0.11-0.59); #Neutrophils 13.9 thou/uL (1.40-6.50); %Eosinophils 2.7 % (0.0-10.0); %Lymphocytes 7.1 % (21.0-51.0); %Monocytes 4.9 % (0.0-10.0); %Neutrophils 85.2 % (42.0-75.0); Hemoglobin 11.2 g/dL (14.0-18.0); Mean Corpuscular HGB CONC 30.2 g/dL (32.0-36.0); Mean Corpuscular Hemoglobin 30.5 pg (27.0-31.0); Mean Platelet Volume 6.9 fL (7.4-10.4); Platelet Count 299 10x3/uL (130-400); RBC Distribution Width 12.2 % (11.5-14.5); Red Blood Cell (RBC) Count 3.67 mill/uL (4.70-6.10); White Blood Cell (WBC) Count 16.3 10x3/uL (4.8-10.8)
[2022-03-18 07:12] LABS: Anion Gap 8 mmol/L (10-20); BUN (Urea Nitrogen) 6 mg/dL (8.4-25.7); Calc. Creatinine Clearance 119 mL/min (70-130); Calcium 7.3 mg/dL (7.8-10.44); Carbon Dioxide 30 mmol/L (23-31); Chloride 102 mmol/L (98-107); Estimated GFR 97; Glucose 132 mg/dL (83-110); Magnesium 1.7 mg/dL (1.6-2.6); Phosphorus 1.8 mg/dL (2.3-4.7); Potassium 3.2 mmol/L (3.5-5.1); Sodium 137 mmol/L (136-145)
[2022-03-18] MEDS ORDERED: Magnesium 2 GM/50 ML(in water) 2 GM in Premix Bag 1 BAG IVPB SCH (08:00)
[2022-03-18] MEDS ORDERED: Potassium Chloride 20 MEQ TAB PO SCH (08:00)
[2022-03-18] MEDS: PHOS-NAK 1 PKT PACK PO SCH ×2 (08:54→11:49)
[2022-03-18] MEDS: Polyethylene Glycol 3350 17 GM Packet PO SCH (08:55)
[2022-03-18] MEDS: Tamsulosin HCl 0.4 MG CAP PO SCH (08:55)
[2022-03-18] MEDS: Levothyroxine 150 MCG TAB PO SCH (08:55)
[2022-03-18] MEDS: Multivit, Therapeutic 1 TAB PO SCH (08:56)
[2022-03-18] MEDS ORDERED: Potassium Bicarbonate/Cit Ac 20 MEQ TAB PO SCH (17:00)
[2022-03-18] MEDS: Enoxaparin Sodium 40 MG/0.4 ML SYRINGE SC SCH (20:07)
[2022-03-19] MEDS: Dextrose 5 %-0.45 % NaCl 1,000 ML IV SCH ×3 (00:07→20:38)
[2022-03-19] MEDS: Morphine 4 MG/ML VIAL SLOW IVP PRN ×5 (02:38→20:40)
[2022-03-19] MEDS: Polyethylene Glycol 3350 17 GM Packet PO SCH (09:12)
[2022-03-19] MEDS: Multivit, Therapeutic 1 TAB PO SCH (09:12)
[2022-03-19] MEDS: Tamsulosin HCl 0.4 MG CAP PO SCH (09:12)
[2022-03-19] MEDS: Levothyroxine 150 MCG TAB PO SCH (09:12)
[2022-03-19 10:33] LABS: #Eosinphils 0.5 thou/uL (0.0-0.7); #Lymphocytes 1.3 thou/uL (1.20-3.40); #Monocytes 0.8 thou/uL (0.11-0.59); %Eosinophils 3.6 % (0.0-10.0); %Lymphocytes 9.5 % (21.0-51.0); %Monocytes 5.6 % (0.0-10.0); %Neutrophils 81.3 % (42.0-75.0); Hemoglobin 12.5 g/dL (14.0-18.0); Mean Corpuscular HGB CONC 32.4 g/dL (32.0-36.0); Mean Corpuscular Hemoglobin 32.2 pg (27.0-31.0); Mean Corpuscular Volume 99.3 fl (78.0-98.0); Mean Platelet Volume 6.5 fL (7.4-10.4); Platelet Count 333 10x3/uL (130-400); Red Blood Cell (RBC) Count 3.87 mill/uL (4.70-6.10); White Blood Cell (WBC) Count 13.6 10x3/uL (4.8-10.8)
[2022-03-19 10:52] LABS: Anion Gap 10 mmol/L (10-20); BUN (Urea Nitrogen) 5 mg/dL (8.4-25.7); Calc. Creatinine Clearance 116 mL/min (70-130); Calcium 8.1 mg/dL (7.8-10.44); Carbon Dioxide 32 mmol/L (23-31); Chloride 98 mmol/L (98-107); Estimated GFR 96; Glucose 120 mg/dL (83-110); Magnesium 2.2 mg/dL (1.6-2.6); Phosphorus 2.2 mg/dL (2.3-4.7); Potassium 3.8 mmol/L (3.5-5.1); Sodium 136 mmol/L (136-145)
[2022-03-19] MEDS ORDERED: Magnesium 2 GM/50 ML(in water) 2 GM in Premix Bag 1 BAG IVPB SCH (11:00)
[2022-03-19] MEDS: Enoxaparin Sodium 40 MG/0.4 ML SYRINGE SC SCH (20:39)
[2022-03-20 05:16] LABS: #Eosinphils 0.6 thou/uL (0.0-0.7); #Lymphocytes 1.1 thou/uL (1.20-3.40); #Monocytes 0.7 thou/uL (0.11-0.59); #Neutrophils 6.7 thou/uL (1.40-6.50); %Basophils 0.3 % (0.0-1.0); %Eosinophils 6.8 % (0.0-10.0); %Lymphocytes 11.7 % (21.0-51.0); %Monocytes 7.7 % (0.0-10.0); %Neutrophils 73.6 % (42.0-75.0); Hemoglobin 11.4 g/dL (14.0-18.0); Mean Corpuscular HGB CONC 31.9 g/dL (32.0-36.0); Mean Corpuscular Hemoglobin 31.7 pg (27.0-31.0); Mean Corpuscular Volume 99.3 fl (78.0-98.0); Mean Platelet Volume 6.4 fL (7.4-10.4); Platelet Count 349 10x3/uL (130-400); RBC Distribution Width 11.9 % (11.5-14.5); Red Blood Cell (RBC) Count 3.61 mill/uL (4.70-6.10); White Blood Cell (WBC) Count 9.1 10x3/uL (4.8-10.8)
[2022-03-20 05:40] LABS: Anion Gap 9 mmol/L (10-20); BUN (Urea Nitrogen) 4 mg/dL (8.4-25.7); Calc. Creatinine Clearance 119 mL/min (70-130); Calcium 8.1 mg/dL (7.8-10.44); Carbon Dioxide 33 mmol/L (23-31); Chloride 99 mmol/L (98-107); Estimated GFR 97; Glucose 108 mg/dL (83-110); Magnesium 2.2 mg/dL (1.6-2.6); Phosphorus 2.5 mg/dL (2.3-4.7); Potassium 3.8 mmol/L (3.5-5.1); Sodium 137 mmol/L (136-145)
[2022-03-20] MEDS: Dextrose 5 %-0.45 % NaCl 1,000 ML IV SCH ×2 (06:37→09:18)
[2022-03-20] MEDS: Morphine 4 MG/ML VIAL SLOW IVP PRN ×2 (07:35→17:02)
[2022-03-20] MEDS ORDERED: Potassium Phosphate 15 MMOL in Sodium Chloride 0.9% 250 ML 250 ML IVPB SCH (09:00)
[2022-03-20] MEDS: Levothyroxine 150 MCG TAB PO SCH (09:17)
[2022-03-20] MEDS: Polyethylene Glycol 3350 17 GM Packet PO SCH (09:18)
[2022-03-20] MEDS: Multivit, Therapeutic 1 TAB PO SCH (09:18)
[2022-03-20] MEDS: Tamsulosin HCl 0.4 MG CAP PO SCH (09:18)
[2022-03-20] MEDS ORDERED: Senokot S 8.6-50 MG TAB PO SCH (11:15)
[2022-03-20] MEDS: Enoxaparin Sodium 40 MG/0.4 ML SYRINGE SC SCH (20:27)
[2022-03-20] MEDS: Senokot S 8.6-50 MG TAB PO SCH (20:27)
[2022-03-21] MEDS: Morphine 4 MG/ML VIAL SLOW IVP PRN ×2 (04:53→09:48)
[2022-03-21 05:15] LABS: #Eosinphils 0.3 thou/uL (0.0-0.7); #Lymphocytes 1.2 thou/uL (1.20-3.40); #Monocytes 0.6 thou/uL (0.11-0.59); %Basophils 0.1 % (0.0-1.0); %Eosinophils 3.1 % (0.0-10.0); %Lymphocytes 11.5 % (21.0-51.0); %Monocytes 6.2 % (0.0-10.0); %Neutrophils 79.1 % (42.0-75.0); Mean Corpuscular HGB CONC 31.3 g/dL (32.0-36.0); Mean Corpuscular Volume 99.2 fl (78.0-98.0); Mean Platelet Volume 6.5 fL (7.4-10.4); Platelet Count 398 10x3/uL (130-400); RBC Distribution Width 12.1 % (11.5-14.5); Red Blood Cell (RBC) Count 3.87 mill/uL (4.70-6.10); White Blood Cell (WBC) Count 10.1 10x3/uL (4.8-10.8)
[2022-03-21 05:55] LABS: ALT (SGPT) 18 U/L (8-55); AST (SGOT) 19 U/L (5-34); Albumin 2.8 g/dL (3.4-4.8); Alkaline Phosphatase 51 U/L (40-110); Anion Gap 10 mmol/L (10-20); BUN (Urea Nitrogen) 5 mg/dL (8.4-25.7); Bilirubin, Total 0.6 mg/dL (0.2-1.2); Calc. Creatinine Clearance 118 mL/min (70-130); Calcium 8.2 mg/dL (7.8-10.44); Carbon Dioxide 34 mmol/L (23-31); Chloride 96 mmol/L (98-107); Estimated GFR 97; Globulin 2.6 g/dL (2.4-3.5); Glucose 95 mg/dL (83-110); Magnesium 2.2 mg/dL (1.6-2.6); Phosphorus 2.7 mg/dL (2.3-4.7); Potassium 3.9 mmol/L (3.5-5.1); Protein, Total 5.4 g/dL (5.8-8.1); Sodium 136 mmol/L (136-145)
[2022-03-21] MEDS ORDERED: Pantoprazole 40 MG VIAL IVP SCH (09:45)
[2022-03-21] MEDS: Senokot S 8.6-50 MG TAB PO SCH ×2 (09:46→21:53)
[2022-03-21] MEDS: Tamsulosin HCl 0.4 MG CAP PO SCH (09:46)
[2022-03-21] MEDS: Polyethylene Glycol 3350 17 GM Packet PO SCH (09:46)
[2022-03-21] MEDS: Acetaminophen 650 MG/20.3 ML UDCUP PO SCH ×3 (09:48→21:54)
[2022-03-21] MEDS: Levothyroxine 150 MCG TAB PO SCH (09:49)
[2022-03-21] MEDS: Multivit, Therapeutic 1 TAB PO SCH (09:49)
[2022-03-21] MEDS ORDERED: Furosemide 20 MG/2 ML VIAL SLOW IVP SCH (11:45)
[2022-03-21] MEDS ORDERED: acetaZOLAMIDE Sodium 500 mg Vial IVP SCH (16:00)
[2022-03-21] MEDS: D5W-AA 4.25% with LYTES 1,000 ML IV SCH (16:52)
[2022-03-21] MEDS: Enoxaparin Sodium 40 MG/0.4 ML SYRINGE SC SCH (21:54)
[2022-03-22] MEDS: Acetaminophen 650 MG/20.3 ML UDCUP PO SCH ×4 (04:00→21:09)
[2022-03-22] MEDS: D5W-AA 4.25% with LYTES 1,000 ML IV SCH (05:08)
[2022-03-22 05:36] LABS: #Eosinphils 0.3 thou/uL (0.0-0.7); #Lymphocytes 1.3 thou/uL (1.20-3.40); #Monocytes 0.7 thou/uL (0.11-0.59); #Neutrophils 5.7 thou/uL (1.40-6.50); %Basophils 0.3 % (0.0-1.0); %Eosinophils 3.5 % (0.0-10.0); %Lymphocytes 15.9 % (21.0-51.0); %Monocytes 8.4 % (0.0-10.0); %Neutrophils 71.9 % (42.0-75.0); Hemoglobin 11.5 g/dL (14.0-18.0); Mean Corpuscular HGB CONC 31.3 g/dL (32.0-36.0); Mean Corpuscular Hemoglobin 31.2 pg (27.0-31.0); Mean Corpuscular Volume 99.7 fl (78.0-98.0); Mean Platelet Volume 6.5 fL (7.4-10.4); Platelet Count 422 10x3/uL (130-400); RBC Distribution Width 12.1 % (11.5-14.5); Red Blood Cell (RBC) Count 3.69 mill/uL (4.70-6.10)
[2022-03-22 06:49] LABS: Anion Gap 10 mmol/L (10-20); BUN (Urea Nitrogen) 11 mg/dL (8.4-25.7); Calc. Creatinine Clearance 104 mL/min (70-130); Calcium 8.3 mg/dL (7.8-10.44); Carbon Dioxide 33 mmol/L (23-31); Chloride 100 mmol/L (98-107); Estimated GFR 93; Glucose 108 mg/dL (83-110); Phosphorus 3.5 mg/dL (2.3-4.7); Potassium 3.7 mmol/L (3.5-5.1); Sodium 139 mmol/L (136-145)
[2022-03-22] MEDS ORDERED: Magnesium 2 GM/50 ML(in water) 2 GM in Premix Bag 1 BAG IVPB SCH (08:00)
[2022-03-22] MEDS: Pantoprazole 40 MG VIAL IVP SCH (08:24)
[2022-03-22] MEDS: Multivit, Therapeutic 1 TAB PO SCH (08:25)
[2022-03-22] MEDS: Tamsulosin HCl 0.4 MG CAP PO SCH (08:25)
[2022-03-22] MEDS: Levothyroxine 150 MCG TAB PO SCH (08:25)
[2022-03-22] MEDS: Polyethylene Glycol 3350 17 GM Packet PO SCH (08:36)
[2022-03-22] MEDS: Senokot S 8.6-50 MG TAB PO SCH (08:36)
[2022-03-22] MEDS ORDERED: Sodium Chloride 0.9% 100 ML ONE (15:53)
[2022-03-22] MEDS ORDERED: CEFAZOLIN 2 GM VIAL ONE (15:53)
[2022-03-22] MEDS ORDERED: fentaNYL PF 100 MCG/2 ML SYRINGE ONE (16:32)
[2022-03-22] MEDS ORDERED: Dexamethasone 20 MG/5 ML VIAL ONE (16:48)
[2022-03-22] MEDS ORDERED: Ondansetron PF 4 MG/2 ML Vial ONE (16:48)
[2022-03-22] MEDS ORDERED: Rocuronium Bromide 10 MG/ML (10ML VIAL) ONE (16:48)
[2022-03-22] MEDS ORDERED: Phenylephrine 10 MG/ML VIAL ONE (16:48)
[2022-03-22] MEDS ORDERED: PROPOFOL 200 MG/20 ML VIAL ONE (16:48)
[2022-03-22] MEDS ORDERED: SUGAMMADEX SODIUM 200 MG/2 ML VIAL ONE (17:26)
[2022-03-22] MEDS ORDERED: Promethazine HCl 25 MG/ML VIAL IM PRN (18:00)
[2022-03-22] MEDS ORDERED: HYDROmorphone 2 MG/ML VIAL SLOW IVP PRN (18:00)
[2022-03-22] MEDS ORDERED: Promethazine HCl 25 MG/ML VIAL IVPB PRN (18:00)
[2022-03-22] MEDS ORDERED: Meperidine HCl/PF 25 MG/ML VIAL SLOW IVP PRN (18:00)
[2022-03-22] MEDS ORDERED: Ondansetron HCl/PF 4 MG/2 ML Vial IVP PRN (18:00)
[2022-03-22] MEDS ORDERED: FENTANYL 50 MCG/ML 1 ML VIAL ONE ×3 (18:09→18:45)
[2022-03-22] MEDS: Enoxaparin Sodium 40 MG/0.4 ML SYRINGE SC SCH (21:08)
[2022-03-22] MEDS: 1/2 NS w/KCL 20 mEq 1,000 ML IV SCH (21:18)
[2022-03-23] MEDS: Acetaminophen 650 MG/20.3 ML UDCUP PO SCH ×4 (04:15→20:59)
[2022-03-23] MEDS: 1/2 NS w/KCL 20 mEq 1,000 ML IV SCH ×2 (05:23→19:43)
[2022-03-23 05:49] LABS: #Lymphocytes 0.6 thou/uL (1.20-3.40); #Monocytes 0.3 thou/uL (0.11-0.59); #Neutrophils 10.1 thou/uL (1.40-6.50); %Eosinophils 0.3 % (0.0-10.0); %Lymphocytes 5.7 % (21.0-51.0); %Monocytes 2.3 % (0.0-10.0); %Neutrophils 91.7 % (42.0-75.0); Hemoglobin 10.9 g/dL (14.0-18.0); Mean Corpuscular HGB CONC 30.9 g/dL (32.0-36.0); Mean Corpuscular Hemoglobin 30.8 pg (27.0-31.0); Mean Corpuscular Volume 99.7 fl (78.0-98.0); Mean Platelet Volume 6.6 fL (7.4-10.4); Platelet Count 397 10x3/uL (130-400); Red Blood Cell (RBC) Count 3.54 mill/uL (4.70-6.10)
[2022-03-23 05:59] LABS: Phosphorus 3.2 mg/dL (2.3-4.7)
[2022-03-23 06:01] LABS: Anion Gap 10 mmol/L (10-20); BUN (Urea Nitrogen) 11 mg/dL (8.4-25.7); Calc. Creatinine Clearance 125 mL/min (70-130); Calcium 7.6 mg/dL (7.8-10.44); Carbon Dioxide 30 mmol/L (23-31); Chloride 105 mmol/L (98-107); Estimated GFR 99; Glucose 102 mg/dL (83-110); Magnesium 2.1 mg/dL (1.6-2.6); Potassium 4.6 mmol/L (3.5-5.1); Sodium 140 mmol/L (136-145)
[2022-03-23] MEDS ORDERED: Dextrose 5% in Water 1,000 ML IV PRN (09:16)
[2022-03-23] MEDS ORDERED: HumaLOG 300 UNITS/3 ML VIAL SC PRN (09:16)
[2022-03-23] MEDS ORDERED: Dextrose 50% Abboject 50 ML SYRINGE SLOW IVP PRN (09:16)
[2022-03-23] MEDS: Levothyroxine 150 MCG TAB PO SCH (09:39)
[2022-03-23] MEDS: Tamsulosin HCl 0.4 MG CAP PO SCH (09:40)
[2022-03-23] MEDS: Pantoprazole 40 MG VIAL IVP SCH (09:40)
[2022-03-23] MEDS: Multivit, Therapeutic 1 TAB PO SCH (09:40)
[2022-03-23] MEDS: Multivitamins, Adult 10 ML, TRACE ELEMENT CONCENTRATE 1 ML in D15W-AA 5% with Lytes 2,0... IV SCH (14:55)
[2022-03-23] MEDS: Enoxaparin Sodium 40 MG/0.4 ML SYRINGE SC SCH (21:00)
[2022-03-23] MEDS: Morphine 4 MG/ML VIAL SLOW IVP PRN (22:22)
[2022-03-24] MEDS: Acetaminophen 650 MG/20.3 ML UDCUP PO SCH ×4 (03:50→21:45)
[2022-03-24] MEDS: 1/2 NS w/KCL 20 mEq 1,000 ML IV SCH ×4 (04:12→16:44)
[2022-03-24 07:23] LABS: #Basophils 0.1 thou/uL (0.0-0.2); #Eosinphils 0.4 thou/uL (0.0-0.7); #Lymphocytes 1.4 thou/uL (1.20-3.40); #Monocytes 0.7 thou/uL (0.11-0.59); #Neutrophils 6.6 thou/uL (1.40-6.50); %Basophils 0.6 % (0.0-1.0); %Eosinophils 4.2 % (0.0-10.0); %Lymphocytes 14.9 % (21.0-51.0); %Monocytes 7.7 % (0.0-10.0); %Neutrophils 72.5 % (42.0-75.0); Hemoglobin 12.2 g/dL (14.0-18.0); Mean Corpuscular HGB CONC 33.3 g/dL (32.0-36.0); Mean Corpuscular Hemoglobin 32.8 pg (27.0-31.0); Mean Corpuscular Volume 98.6 fl (78.0-98.0); Mean Platelet Volume 5.9 fL (7.4-10.4); Platelet Count 435 10x3/uL (130-400); RBC Distribution Width 12.1 % (11.5-14.5); Red Blood Cell (RBC) Count 3.72 mill/uL (4.70-6.10); White Blood Cell (WBC) Count 9.2 10x3/uL (4.8-10.8)
[2022-03-24 07:48] LABS: ALT (SGPT) 17 U/L (8-55); AST (SGOT) 22 U/L (5-34); Albumin 2.6 g/dL (3.4-4.8); Alkaline Phosphatase 49 U/L (40-110); Anion Gap 8 mmol/L (10-20); BUN (Urea Nitrogen) 10 mg/dL (8.4-25.7); Bilirubin, Total 0.3 mg/dL (0.2-1.2); Calc. Creatinine Clearance 116 mL/min (70-130); Calcium 7.9 mg/dL (7.8-10.44); Carbon Dioxide 32 mmol/L (23-31); Chloride 103 mmol/L (98-107); Estimated GFR 96; Globulin 2.6 g/dL (2.4-3.5); Glucose 133 mg/dL (83-110); Magnesium 2.2 mg/dL (1.6-2.6); Phosphorus 2.3 mg/dL (2.3-4.7); Potassium 3.8 mmol/L (3.5-5.1); Protein, Total 5.2 g/dL (5.8-8.1); Sodium 139 mmol/L (136-145)
[2022-03-24] MEDS: Multivit, Therapeutic 1 TAB PO SCH (09:39)
[2022-03-24] MEDS: Levothyroxine 150 MCG TAB PO SCH (09:40)
[2022-03-24] MEDS: Tamsulosin HCl 0.4 MG CAP PO SCH (09:40)
[2022-03-24] MEDS: Pantoprazole 40 MG VIAL IVP SCH (09:40)
[2022-03-24] MEDS ORDERED: Potassium Phosphate 15 MMOL in Sodium Chloride 0.9% 250 ML 250 ML IVPB SCH (10:45)
[2022-03-24] MEDS ORDERED: Multivitamins, Adult 10 ML, TRACE ELEMENT CONCENTRATE 1 ML in D15W-AA 5% with Lytes 2,0... IV SCH (14:00)
[2022-03-24] MEDS: Morphine 4 MG/ML VIAL SLOW IVP PRN (16:03)
[2022-03-24] MEDS: Enoxaparin Sodium 40 MG/0.4 ML SYRINGE SC SCH (21:28)
[2022-03-25] MEDS: Morphine 4 MG/ML VIAL SLOW IVP PRN ×4 (00:52→21:37)
[2022-03-25] MEDS: 1/2 NS w/KCL 20 mEq 1,000 ML IV SCH (02:02)
[2022-03-25] MEDS: Acetaminophen 650 MG/20.3 ML UDCUP PO SCH ×3 (03:45→19:26)
[2022-03-25 07:36] LABS: #Eosinphils 0.5 thou/uL (0.0-0.7); #Lymphocytes 1.4 thou/uL (1.20-3.40); #Monocytes 0.8 thou/uL (0.11-0.59); %Basophils 0.2 % (0.0-1.0); %Eosinophils 4.8 % (0.0-10.0); Hemoglobin 12.2 g/dL (14.0-18.0); Mean Corpuscular HGB CONC 31.2 g/dL (32.0-36.0); Mean Corpuscular Hemoglobin 31.1 pg (27.0-31.0); Mean Corpuscular Volume 99.6 fl (78.0-98.0); Platelet Count 455 10x3/uL (130-400); RBC Distribution Width 12.5 % (11.5-14.5); Red Blood Cell (RBC) Count 3.94 mill/uL (4.70-6.10); White Blood Cell (WBC) Count 9.6 10x3/uL (4.8-10.8)
[2022-03-25 07:56] LABS: ALT (SGPT) 24 U/L (8-55); AST (SGOT) 25 U/L (5-34); Alkaline Phosphatase 55 U/L (40-110); Anion Gap 10 mmol/L (10-20); BUN (Urea Nitrogen) 9 mg/dL (8.4-25.7); Bilirubin, Total 0.3 mg/dL (0.2-1.2); Calc. Creatinine Clearance 131 mL/min (70-130); Calcium 8.3 mg/dL (7.8-10.44); Carbon Dioxide 29 mmol/L (23-31); Chloride 105 mmol/L (98-107); Estimated GFR 100; Globulin 2.7 g/dL (2.4-3.5); Glucose 116 mg/dL (83-110); Phosphorus 2.6 mg/dL (2.3-4.7); Potassium 4.2 mmol/L (3.5-5.1); Protein, Total 5.7 g/dL (5.8-8.1); Sodium 140 mmol/L (136-145)
[2022-03-25] MEDS ORDERED: Magnesium 2 GM/50 ML(in water) 2 GM in Premix Bag 1 BAG IVPB SCH (08:15)
[2022-03-25] MEDS: Levothyroxine 150 MCG TAB PO SCH (09:09)
[2022-03-25] MEDS: Multivit, Therapeutic 1 TAB PO SCH (09:10)
[2022-03-25] MEDS: Pantoprazole 40 MG VIAL IVP SCH (09:10)
[2022-03-25] MEDS: Tamsulosin HCl 0.4 MG CAP PO SCH (09:10)
[2022-03-25] MEDS: Multivitamins, Adult 10 ML, TRACE ELEMENT CONCENTRATE 1 ML in D15W-AA 5% with Lytes 2,0... IV SCH (14:43)
[2022-03-25] MEDS: Enoxaparin Sodium 40 MG/0.4 ML SYRINGE SC SCH (19:25)
[2022-03-26] MEDS: Acetaminophen 650 MG/20.3 ML UDCUP PO SCH ×4 (02:24→22:51)
[2022-03-26] MEDS: Morphine 4 MG/ML VIAL SLOW IVP PRN ×4 (04:29→23:00)
[2022-03-26 07:58] LABS: #Eosinphils 0.6 thou/uL (0.0-0.7); #Lymphocytes 1.7 thou/uL (1.20-3.40); #Monocytes 0.7 thou/uL (0.11-0.59); #Neutrophils 6.9 thou/uL (1.40-6.50); %Basophils 0.4 % (0.0-1.0); %Eosinophils 6.1 % (0.0-10.0); %Lymphocytes 17.4 % (21.0-51.0); %Monocytes 7.2 % (0.0-10.0); %Neutrophils 68.8 % (42.0-75.0); Mean Corpuscular HGB CONC 30.3 g/dL (32.0-36.0); Mean Corpuscular Hemoglobin 30.5 pg (27.0-31.0); Mean Platelet Volume 6.1 fL (7.4-10.4); Platelet Count 437 10x3/uL (130-400); RBC Distribution Width 12.7 % (11.5-14.5); Red Blood Cell (RBC) Count 3.94 mill/uL (4.70-6.10)
[2022-03-26] MEDS ORDERED: Levothyroxine 150 MCG TAB PO SCH (08:00)
[2022-03-26 08:50] LABS: Anion Gap 11 mmol/L (10-20); BUN (Urea Nitrogen) 14 mg/dL (8.4-25.7); Calc. Creatinine Clearance 137 mL/min (70-130); Calcium 8.4 mg/dL (7.8-10.44); Carbon Dioxide 30 mmol/L (23-31); Chloride 102 mmol/L (98-107); Estimated GFR 101; Glucose 121 mg/dL (83-110); Magnesium 2.1 mg/dL (1.6-2.6); Phosphorus 3.4 mg/dL (2.3-4.7); Potassium 4.3 mmol/L (3.5-5.1); Sodium 139 mmol/L (136-145)
[2022-03-26] MEDS: Pantoprazole 40 MG VIAL IVP SCH (08:56)
[2022-03-26] MEDS: Tamsulosin HCl 0.4 MG CAP PO SCH (08:59)
[2022-03-26] MEDS: Multivit, Therapeutic 1 TAB PO SCH (08:59)
[2022-03-26] MEDS: Enoxaparin Sodium 40 MG/0.4 ML SYRINGE SC SCH (21:58)
[2022-03-27] MEDS: Acetaminophen 650 MG/20.3 ML UDCUP PO SCH ×4 (02:52→22:52)
[2022-03-27] MEDS: Levothyroxine 150 MCG TAB PO SCH (05:46)
[2022-03-27 06:52] LABS: #Basophils 0.1 thou/uL (0.0-0.2); #Eosinphils 0.7 thou/uL (0.0-0.7); #Lymphocytes 1.6 thou/uL (1.20-3.40); #Monocytes 0.9 thou/uL (0.11-0.59); #Neutrophils 8.6 thou/uL (1.40-6.50); %Basophils 0.5 % (0.0-1.0); %Eosinophils 5.9 % (0.0-10.0); %Lymphocytes 13.6 % (21.0-51.0); %Monocytes 7.2 % (0.0-10.0); %Neutrophils 72.8 % (42.0-75.0); Hemoglobin 12.5 g/dL (14.0-18.0); Mean Corpuscular HGB CONC 31.6 g/dL (32.0-36.0); Mean Corpuscular Hemoglobin 31.8 pg (27.0-31.0); Mean Platelet Volume 6.4 fL (7.4-10.4); Platelet Count 452 10x3/uL (130-400); RBC Distribution Width 12.7 % (11.5-14.5); Red Blood Cell (RBC) Count 3.94 mill/uL (4.70-6.10); White Blood Cell (WBC) Count 11.9 10x3/uL (4.8-10.8)
[2022-03-27 07:13] LABS: Anion Gap 9 mmol/L (10-20); BUN (Urea Nitrogen) 15 mg/dL (8.4-25.7); Calc. Creatinine Clearance 119 mL/min (70-130); Calcium 8.8 mg/dL (7.8-10.44); Carbon Dioxide 37 mmol/L (23-31); Chloride 97 mmol/L (98-107); Estimated GFR 97; Glucose 113 mg/dL (83-110); Magnesium 2.1 mg/dL (1.6-2.6); Phosphorus 3.8 mg/dL (2.3-4.7); Potassium 4.3 mmol/L (3.5-5.1); Sodium 139 mmol/L (136-145)
[2022-03-27] MEDS: Pantoprazole 40 MG VIAL IVP SCH (08:17)
[2022-03-27] MEDS: Multivit, Therapeutic 1 TAB PO SCH (08:17)
[2022-03-27] MEDS: Tamsulosin HCl 0.4 MG CAP PO SCH (08:17)
[2022-03-27] MEDS: Morphine 4 MG/ML VIAL SLOW IVP PRN (20:57)
[2022-03-27] MEDS: Enoxaparin Sodium 40 MG/0.4 ML SYRINGE SC SCH (20:57)
[2022-03-28] MEDS: Acetaminophen 650 MG/20.3 ML UDCUP PO SCH ×4 (03:30→20:24)
[2022-03-28] MEDS: Morphine 4 MG/ML VIAL SLOW IVP PRN ×3 (04:47→20:17)
[2022-03-28] MEDS: Levothyroxine 150 MCG TAB PO SCH (05:57)
[2022-03-28] MEDS: Multivit, Therapeutic 1 TAB PO SCH (09:10)
[2022-03-28] MEDS: Tamsulosin HCl 0.4 MG CAP PO SCH (09:10)
[2022-03-28] MEDS: Pantoprazole 40 MG VIAL IVP SCH (09:10)
[2022-03-28] MEDS: Amino Acids 4.25 %/Dextrose 5% 1,000 ML IV SCH (16:16)
[2022-03-28] MEDS: Enoxaparin Sodium 40 MG/0.4 ML SYRINGE SC SCH (20:17)
[2022-03-29] MEDS: Amino Acids 4.25 %/Dextrose 5% 1,000 ML IV SCH (02:06)
[2022-03-29] MEDS: Acetaminophen 650 MG/20.3 ML UDCUP PO SCH ×4 (03:52→20:26)
[2022-03-29] MEDS: Levothyroxine 150 MCG TAB PO SCH (05:36)
[2022-03-29 06:37] LABS: #Eosinphils 0.7 thou/uL (0.0-0.7); #Lymphocytes 1.9 thou/uL (1.20-3.40); #Monocytes 1.1 thou/uL (0.11-0.59); #Neutrophils 7.3 thou/uL (1.40-6.50); %Basophils 0.3 % (0.0-1.0); %Eosinophils 6.5 % (0.0-10.0); %Lymphocytes 17.5 % (21.0-51.0); %Monocytes 10.1 % (0.0-10.0); %Neutrophils 65.6 % (42.0-75.0); Hemoglobin 12.6 g/dL (14.0-18.0); Mean Corpuscular HGB CONC 30.7 g/dL (32.0-36.0); Mean Corpuscular Hemoglobin 30.8 pg (27.0-31.0); Mean Platelet Volume 6.3 fL (7.4-10.4); Platelet Count 443 10x3/uL (130-400); RBC Distribution Width 12.9 % (11.5-14.5); Red Blood Cell (RBC) Count 4.07 mill/uL (4.70-6.10); White Blood Cell (WBC) Count 11.1 10x3/uL (4.8-10.8)
[2022-03-29 06:59] LABS: Anion Gap 13 mmol/L (10-20); BUN (Urea Nitrogen) 18 mg/dL (8.4-25.7); Calc. Creatinine Clearance 111 mL/min (70-130); Calcium 8.9 mg/dL (7.8-10.44); Carbon Dioxide 34 mmol/L (23-31); Chloride 97 mmol/L (98-107); Estimated GFR 95; Glucose 107 mg/dL (83-110); Phosphorus 3.1 mg/dL (2.3-4.7); Potassium 3.6 mmol/L (3.5-5.1); Sodium 140 mmol/L (136-145)
[2022-03-29] MEDS ORDERED: Magnesium 2 GM/50 ML(in water) 2 GM in Premix Bag 1 BAG IVPB SCH (08:00)
[2022-03-29] MEDS: Tamsulosin HCl 0.4 MG CAP PO SCH (09:13)
[2022-03-29] MEDS: Multivit, Therapeutic 1 TAB PO SCH (09:13)
[2022-03-29] MEDS: Pantoprazole 40 MG VIAL IVP SCH (09:13)
[2022-03-29] MEDS ORDERED: PROPOFOL 200 MG/20 ML VIAL ONE (13:32)
[2022-03-29] MEDS: Morphine 4 MG/ML VIAL SLOW IVP PRN (14:56)
[2022-03-29] MEDS: Multivitamins, Adult 10 ML, TRACE ELEMENT CONCENTRATE 1 ML in D15W-AA 5% with Lytes 2,0... IV SCH (15:07)
[2022-03-29] MEDS: Enoxaparin Sodium 40 MG/0.4 ML SYRINGE SC SCH (20:25)
[2022-03-30] MEDS: Acetaminophen 650 MG/20.3 ML UDCUP PO SCH ×4 (03:57→20:44)
[2022-03-30] MEDS: Morphine 4 MG/ML VIAL SLOW IVP PRN (04:50)
[2022-03-30] MEDS: Levothyroxine 150 MCG TAB PO SCH (05:03)
[2022-03-30] MEDS: Tamsulosin HCl 0.4 MG CAP PO SCH (08:49)
[2022-03-30] MEDS: Multivit, Therapeutic 1 TAB PO SCH (08:49)
[2022-03-30] MEDS: Pantoprazole 40 MG VIAL IVP SCH (08:55)
[2022-03-30] MEDS: Multivitamins, Adult 10 ML, TRACE ELEMENT CONCENTRATE 1 ML in D15W-AA 5% with Lytes 2,0... IV SCH (14:37)
[2022-03-30] MEDS: Enoxaparin Sodium 40 MG/0.4 ML SYRINGE SC SCH (20:46)
[2022-03-31] MEDS: Acetaminophen 650 MG/20.3 ML UDCUP PO SCH ×4 (02:29→21:44)
[2022-03-31 05:43] LABS: #Basophils 0.1 thou/uL (0.0-0.2); #Eosinphils 0.8 thou/uL (0.0-0.7); #Lymphocytes 1.6 thou/uL (1.20-3.40); #Monocytes 1.2 thou/uL (0.11-0.59); #Neutrophils 8.5 thou/uL (1.40-6.50); %Basophils 0.5 % (0.0-1.0); %Eosinophils 6.2 % (0.0-10.0); %Lymphocytes 13.3 % (21.0-51.0); %Monocytes 10.1 % (0.0-10.0); %Neutrophils 69.9 % (42.0-75.0); Hemoglobin 13.8 g/dL (14.0-18.0); Mean Corpuscular Hemoglobin 31.4 pg (27.0-31.0); Mean Platelet Volume 6.4 fL (7.4-10.4); Platelet Count 443 10x3/uL (130-400); RBC Distribution Width 12.8 % (11.5-14.5); White Blood Cell (WBC) Count 12.2 10x3/uL (4.8-10.8)
[2022-03-31] MEDS: Levothyroxine 150 MCG TAB PO SCH (05:45)
[2022-03-31 06:19] LABS: Anion Gap 12 mmol/L (10-20); BUN (Urea Nitrogen) 13 mg/dL (8.4-25.7); Calc. Creatinine Clearance 121 mL/min (70-130); Calcium 9.1 mg/dL (7.8-10.44); Carbon Dioxide 32 mmol/L (23-31); Chloride 98 mmol/L (98-107); Estimated GFR 98; Glucose 116 mg/dL (83-110); Magnesium 2.2 mg/dL (1.6-2.6); Phosphorus 3.2 mg/dL (2.3-4.7); Potassium 3.9 mmol/L (3.5-5.1); Sodium 138 mmol/L (136-145)
[2022-03-31] MEDS: Pantoprazole 40 MG VIAL IVP SCH (07:23)
[2022-03-31] MEDS: Morphine 4 MG/ML VIAL SLOW IVP PRN ×2 (07:28→20:28)
[2022-03-31] MEDS: Tamsulosin HCl 0.4 MG CAP PO SCH (07:29)
[2022-03-31] MEDS: Multivit, Therapeutic 1 TAB PO SCH (07:30)
[2022-03-31] MEDS: Multivitamins, Adult 10 ML, TRACE ELEMENT CONCENTRATE 1 ML in D15W-AA 5% with Lytes 2,0... IV SCH (14:25)
[2022-03-31] MEDS ORDERED: predniSONE 20 MG TAB PO SCH (17:15)
[2022-03-31] MEDS: Enoxaparin Sodium 40 MG/0.4 ML SYRINGE SC SCH (20:17)
[2022-03-31 21:52] VITALS: BMI 30.2
[2022-04-01] MEDS: Acetaminophen 650 MG/20.3 ML UDCUP PO SCH ×4 (03:58→21:35)
[2022-04-01] MEDS: Levothyroxine 150 MCG TAB PO SCH (05:24)
[2022-04-01] MEDS: Pantoprazole 40 MG VIAL IVP SCH (08:10)
[2022-04-01] MEDS: Tamsulosin HCl 0.4 MG CAP PO SCH (08:10)
[2022-04-01] MEDS: Multivit, Therapeutic 1 TAB PO SCH (08:10)
[2022-04-01] MEDS ORDERED: Roflumilast [Daliresp] 500 MCG Tablet PO SCH (09:00)
[2022-04-01] MEDS ORDERED: predniSONE 20 MG TAB PO SCH (09:00)
[2022-04-01] MEDS: Multivitamins, Adult 10 ML, TRACE ELEMENT CONCENTRATE 1 ML in D15W-AA 5% with Lytes 2,0... IV SCH (14:13)
[2022-04-01] MEDS: Morphine 4 MG/ML VIAL SLOW IVP PRN (20:29)
[2022-04-01] MEDS: Enoxaparin Sodium 40 MG/0.4 ML SYRINGE SC SCH (20:30)
[2022-04-02] MEDS: Morphine 4 MG/ML VIAL SLOW IVP PRN ×2 (05:15→19:56)
[2022-04-02] MEDS: Levothyroxine 150 MCG TAB PO SCH (05:15)
[2022-04-02] MEDS: Acetaminophen 650 MG/20.3 ML UDCUP PO SCH ×4 (05:36→20:50)
[2022-04-02] MEDS: Multivit, Therapeutic 1 TAB PO SCH (08:57)
[2022-04-02] MEDS: Pantoprazole 40 MG VIAL IVP SCH (08:58)
[2022-04-02] MEDS: Tamsulosin HCl 0.4 MG CAP PO SCH (08:58)
[2022-04-02] MEDS ORDERED: predniSONE 20 MG TAB PO SCH (09:00)
[2022-04-02] MEDS: Multivitamins, Adult 10 ML, TRACE ELEMENT CONCENTRATE 1 ML in D15W-AA 5% with Lytes 2,0... IV SCH (14:24)
[2022-04-02] MEDS: Enoxaparin Sodium 40 MG/0.4 ML SYRINGE SC SCH (19:53)
[2022-04-03] MEDS: Levothyroxine 150 MCG TAB PO SCH (05:24)
[2022-04-03] MEDS: Acetaminophen 650 MG/20.3 ML UDCUP PO SCH ×4 (07:16→21:24)
[2022-04-03 08:47] LABS: Anion Gap 13 mmol/L (10-20); BUN (Urea Nitrogen) 15 mg/dL (8.4-25.7); Calc. Creatinine Clearance 116 mL/min (70-130); Calcium 8.8 mg/dL (7.8-10.44); Carbon Dioxide 30 mmol/L (23-31); Chloride 99 mmol/L (98-107); Estimated GFR 98; Glucose 122 mg/dL (83-110); Potassium 3.9 mmol/L (3.5-5.1); Sodium 138 mmol/L (136-145)
[2022-04-03] MEDS ORDERED: predniSONE 20 MG TAB PO SCH (09:00)
[2022-04-03] MEDS: Tamsulosin HCl 0.4 MG CAP PO SCH (09:35)
[2022-04-03] MEDS: Pantoprazole 40 MG VIAL IVP SCH (09:35)
[2022-04-03] MEDS: Multivit, Therapeutic 1 TAB PO SCH (09:35)
[2022-04-03] MEDS ORDERED: traMADol HCl 50 MG TAB PO PRN (13:14)
[2022-04-03] MEDS ORDERED: Arformoterol 15 MCG/2 ML NEB NEB SCH (18:30)
[2022-04-03] MEDS ORDERED: Ipratropium Bromide 2.5 ml Neb NEB SCH (19:00)
[2022-04-03] MEDS ORDERED: Roflumilast [Daliresp] 500 MCG Tablet PO SCH (19:30)
[2022-04-03] MEDS ORDERED: Enalaprilat Dihydrate 1.25 MG/ML VIAL SLOW IVP PRN (21:08)
[2022-04-03] MEDS ORDERED: Chloraseptic Spray 180 ml Bottle PO PRN (21:08)
[2022-04-03] MEDS ORDERED: Fluticasone Propionate Nasal Spray 16 gm Bottle NASAL PRN (21:09)
[2022-04-03] MEDS ORDERED: guaiFENesin ER 600 MG TAB PO PRN (21:10)
[2022-04-03] MEDS ORDERED: Dextrose 5% in Water 1,000 ML IV PRN (21:11)
[2022-04-03] MEDS ORDERED: Dextrose 50% Abboject 50 ML SYRINGE SLOW IVP PRN (21:11)
[2022-04-03] MEDS: Enoxaparin Sodium 40 MG/0.4 ML SYRINGE SC SCH (21:27)
[2022-04-03] MEDS ORDERED: Enoxaparin Sodium 40 MG/0.4 ML SYRINGE SC SCH (21:30)
[2022-04-04] MEDS: traMADol HCl 50 MG TAB PO PRN ×2 (00:27→08:41)
[2022-04-04] MEDS: Ipratropium Bromide 2.5 ml Neb NEB SCH ×3 (02:12→12:39)
[2022-04-04] MEDS: Acetaminophen 650 MG/20.3 ML UDCUP PO SCH ×2 (04:01→08:34)
[2022-04-04] MEDS ORDERED: Levothyroxine 150 MCG TAB PO SCH (06:00)
[2022-04-04] MEDS ORDERED: Arformoterol 15 MCG/2 ML NEB NEB SCH (06:30)
[2022-04-04] MEDS: Polyethylene Glycol 3350 17 GM Packet PO SCH ×2 (08:34→08:36)
[2022-04-04] MEDS ORDERED: Hydrochlorothiazide 25 MG TAB PO SCH ×2 (09:00)
[2022-04-04] MEDS ORDERED: Multivit, Therapeutic 1 TAB PO SCH (09:00)
[2022-04-04] MEDS ORDERED: Polyethylene Glycol 3350 17 GM Packet PO SCH (09:00)
[2022-04-04] MEDS ORDERED: Tamsulosin HCl 0.4 MG CAP PO SCH (09:00)
[2022-04-04] MEDS ORDERED: CALCIUM CARB PO SCH (09:00)
[2022-04-04] MEDS ORDERED: VITAMIN D3 PO SCH (09:00)
[2022-04-04] MEDS ORDERED: VIT K1 PO SCH (09:00)
[2022-04-04] MEDS ORDERED: predniSONE 20 MG TAB PO SCH ×2 (09:00)
[2022-04-04 12:20] VITALS: BP 128/82; TEMP 98.2
[2022-04-04] MEDS ORDERED: Enoxaparin Sodium 40 MG/0.4 ML SYRINGE SC SCH (21:00)
[2022-04-05] MEDS ORDERED: Calcium Carbonate 600 MG + Vit D TAB PO SCH (09:00)
== END 2022-04-04 14:10 | disposition home or self-care (01) | DRG 327 ==
LOC: SUATTDRO 06:50 → SDC 06:50 → SURG A 11:06 → UNDODISIN 04-03 19:24
PROVIDERS: ADMIT Internal Medicine; ATTEND Internal Medicine
PROC: 0DJ08ZZ Inspection of Upper Intestinal Tract, Via Natural or Artificial Opening Endoscopic (ICD-10-PCS; 2022-03-08)
PROC: 0D798ZZ Dilation of Duodenum, Via Natural or Artificial Opening Endoscopic (ICD-10-PCS; 2022-03-10)
PROC: 0DB98ZX Excision of Duodenum, Via Natural or Artificial Opening Endoscopic, Diagnostic (ICD-10-PCS; 2022-03-10)
PROC: 0DB78ZX Excision of Stomach, Pylorus, Via Natural or Artificial Opening Endoscopic, Diagnostic (ICD-10-PCS; 2022-03-10)
PROC: 0DH98UZ Insertion of Feeding Device into Duodenum, Via Natural or Artificial Opening Endoscopic (ICD-10-PCS; 2022-03-10)
PROC: 02HV33Z Insertion of Infusion Device into Superior Vena Cava, Percutaneous Approach (ICD-10-PCS; 2022-03-10)
PROC: 0D160ZA Bypass Stomach to Jejunum, Open Approach (ICD-10-PCS; principal; 2022-03-16)
PROC: 0DNU0ZZ Release Omentum, Open Approach (ICD-10-PCS; 2022-03-16)
PROC: 2W13X6Z Compression of Abdominal Wall using Pressure Dressing (ICD-10-PCS; 2022-03-22)
PROC: 3E0436Z Introduction of Nutritional Substance into Central Vein, Percutaneous Approach (ICD-10-PCS; 2022-03-23)
PROC: 0D9770Z Drainage of Stomach, Pylorus with Drainage Device, Via Natural or Artificial Opening (ICD-10-PCS; 2022-03-23)
DX: K31.5 Obstruction of duodenum (principal); E44.0 Moderate protein-calorie malnutrition; J96.11 Chronic respiratory failure with hypoxia; K56.7 Ileus, unspecified; T81.31XA Disruption of external operation (surgical) wound, not elsewhere classified, initial encounter; J44.9 Chronic obstructive pulmonary disease, unspecified; E66.9 Obesity, unspecified; Z20.822 Contact with and (suspected) exposure to COVID-19; E87.6 Hypokalemia; E83.39 Other disorders of phosphorus metabolism; I10 Essential (primary) hypertension; K26.9 Duodenal ulcer, unspecified as acute or chronic, without hemorrhage or perforation; E83.42 Hypomagnesemia; Z88.8 Allergy status to other drugs, medicaments and biological substances; Z79.51 Long term (current) use of inhaled steroids; Z79.890 Hormone replacement therapy; Z79.899 Other long term (current) drug therapy; Z99.81 Dependence on supplemental oxygen; Z87.891 Personal history of nicotine dependence; Z90.49 Acquired absence of other specified parts of digestive tract; Z68.32 Body mass index [BMI] 32.0-32.9, adult; Z85.038 Personal history of other malignant neoplasm of large intestine; Z68.30 Body mass index [BMI] 30.0-30.9, adult; Y83.8 Other surgical procedures as the cause of abnormal reaction of the patient, or of later complication, without mention of misadventure at the time of the procedure
CPT/HCPCS: 36415; 36416; 71045; 71046; 74018; 74019; 74022; 74177; 74240; 80048; 80053; 81001; 82378; 83605; 83735; 84100; 84484; 85025; 85610; 85730; 87040; 87086; 87811; 88305; 88307; 88341; 88342; 94640; 94760; 97139; A4649; C1769; C1776; C9113; J0330; J1100; J1120; J1642; J1650; J1885; J2250; J2270; J2370; J2405; J2704; J3010; J3475; J3480; J3490; J7030; J7042; J7050; J7120; J7512; J7620; J7626; Q9963; Q9967; S0020; U0002